=== PATIENT | female | born 1950 | race Caucasian/White ===

== ENCOUNTER 2017-05-08 09:49 | Emergency (ER) | payer MEDICARE, BC ==
[2016-02-02 10:19] VITALS: BMI 38.2
[~2017-05-08 09:49] MED LIST: ADVAIR 250/501 DISK INH; AMBIEN5 MG PO; ASTELIN137 MCG NS; ATROVENT 0.06%15 ML NS; BAYER CHEWABLE81 MG PO; BENICAR20 MG PO; BYSTOLIC20 MG PO; CHOLESTYRAMIN4 G/PK1 PO; COZAAR50 MG PO; CRESTOR20 MG PO; DIGESTIVE ADVANTAGE; ENTOCORT EC3 MG PO; FLAGYL500 MG PO; GABAPENTIN100 MG PO; HYDROCHLOROTHIA25 MG PO; HYDROCODONE-APA1 TAB PO; IMDUR30 MG PO; JANUVIA100 MG PO; KLONOPIN0.5 MG PO; KLOR-CON M2020 MEQ PO; LACTINEX C1 TAB.CHEW PO; MULTIVITAMIN; NEURONTIN 100100 MG PO; NIFEREX CAPSULE60 MG PO; NYSTATIN ORAL SU5 ML PO; OXYCODONE HCL5 MG PO; PAXIL20 MG PO; PEPCID20 MG PO; PLAQUENIL200 MG PO; PLAVIX75 MG PO; PREDNISONE20 MG PO; PRILOSEC20 MG PO; QUESTRAN PACK4 G/PKT PO; SALAGEN5 MG PO; SINGULAIR10 MG PO; SYMBICORT 16010.2 GM INH; SYSTANE 0.3-0.4%5 ML EACH EYE; TRAZODONE HCL50 MG PO; VICTOZA0.6 MG/0.1 SQ; VITAMIN C1000 MG PO; VITAMIN D31000 UNIT PO; ZANAFLEX4 MG PO; ZOFRAN4 MG PO; ZYLOPRIM100 MG PO; ZYRTEC10 MG PO; [UNRECOGNIZED DRUG - OTHER]
[2017-05-08 11:38] LABS: BASOPHILS 0.3 % (0-2); EOSINOPHILS 0 % (0-7); HEMATOCRIT 27.7 % (36.0-48.0); HEMOGLOBIN 9.4 g/dL (12-16); IMMATURE GRANULOCYTES 0.5 % (0-5); LYMPHOCYTES 10.2 % (15-50); MCH 36.2 pg (26.0-34.0); MCHC 33.9 g/dL (31.0-37.0); MCV 106.5 fL (80.0-100.0); MEAN PLATELET VOLUME 10.8 fL (7.4-10.4); MONOCYTES 9.4 % (2-11); NEUTROPHILS 79.6 % (40-80); WBC 3.7 10x3/uL (4.8-10.8)
[2017-05-08 11:48] LABS: PLATELET COUNT 212 10x3/uL (130-400)
[2017-05-08 11:56] LABS: ALBUMIN 3.3 g/dL (3.4-5.0); ANION GAP 14.5 mmol/L (8-16); BILIRUBIN - TOTAL 2.3 mg/dL (0.2-1.3); CALCIUM 8.9 mg/dL (8.5-10.1); CARBON DIOXIDE 25.8 mmol/L (21.0-32.0); CREATININE - SERUM 0.9 mg/dL (0.6-1.3); POTASSIUM - SERUM 4.3 mmol/L (3.5-5.1); PROTEIN - SERUM 7.2 g/dL (6.4-8.2)
[2017-05-08 14:22] LABS: APPEARANCE SLT CLOUDY (CLEAR); COLOR YELLOW (YELLOW); GLUCOSE NEGATIVE (NEGATIVE); NITRITE POSITIVE (NEGATIVE); PROTEIN 3+ mg/dL (NEGATIVE); SPECIFIC GRAVITY 1.015 (1.005-1.020)
[2017-05-08 14:23] LABS: BACTERIA MANY /hpf (NONE SEEN); BILIRUBIN NEGATIVE (NEGATIVE); EPITHELIAL CELLS OCC /hpf (0-5); KETONE NEGATIVE (NEGATIVE); RED CELLS - URINE 0-5 /hpf (0-5)
== END 2017-05-08 14:55 | disposition home or self-care (01) ==
LOC: D.ER 09:49
PROVIDERS: Emergency Medicine
DX: R11.10 Vomiting, unspecified (principal); N39.0 Urinary tract infection, site not specified; E11.9 Type 2 diabetes mellitus without complications; Z79.4 Long term (current) use of insulin; M32.9 Systemic lupus erythematosus, unspecified

== ENCOUNTER 2017-12-18 09:13 | Outpatient (CLI) | payer MEDICARE, BC ==
[~2017-12-18] VITALS: Ht 149.9 cm; Wt 78.2 kg
--- NOTE | ~2017-12-18 | OP ---
PATIENT NAME: CELESTINE VANEGAS MEDICAL RECORD: [id number] :52 LOCATION:D.CAT ADMISSION DATE: SURGEON: BHARATH APONTE MD DATE OF OPERATION: 12/18/2017 PROCEDURES: 1. Left heart catheterization. 2. Selective coronary angiography. 3. Left ventriculogram. PROCEDURE IN DETAIL: After informed consent was obtained and after detailed description of risks and benefits as well as alternative therapies, the patient elected to proceed with angiogram. The right femoral area was prepped and draped in normal sterile fashion. Right femoral artery was cannulated via modified Seldinger technique with placement of 5-Sami sheath. All catheters were exchanged through the sheath. FINDINGS: Left ventriculogram was performed in standard 30-degree BRANCH view, reveals global hypokinesis throughout all segments. Overall ejection fraction estimated at 20%. SELECTIVE CORONARY ANGIOGRAPHY: 1. Left main has no significant angiographic disease. 2. Left anterior descending has previously placed stents in LAD and LAD diagonal. These are widely patent with no significant restenosis. No disease else living[place] of LAD or its branches. 3. Left circumflex has mild irregularities, but no flow-limiting stenosis. 4. Right coronary has mild irregularities, but no flow-limiting stenosis. OVERALL IMPRESSION: Wide patency of the previously placed stents in LAD and LAD diagonal, severe cardiomyopathy, ejection fraction 20%. Standard medical management and treatment of cardiomyopathy. TRANSINT:[id number] Voice Confirmation ID: [id number] DOCUMENT ID: [id number] BHARATH APONTE MD at 1710 CC: [id number] DICTATION DATE: 12/18/17 1302 CONSTRUCTION DRILLER: 12/18/17 1324 DEP CLI 12/18/17 [facility] [address] [place] [address]
--- NOTE | ~2017-12-18 | HEMODYNAMI ---
PATIENT:CELESTINE VANEGAS MEDICAL RECORD: [id number] : 52 LOCATION:DSUZANNE ADMISSION DATE: 12/18/17 Generatedon:12/18/201713:06 Patient name: CELESTINE VANEGAS Patient #: [id number] : 1950 Date of study: 12/18/2017 Page: Of Hemodynamic Procedure Report Patient Data Patient Demographics Procedure consent was obtained First Name: CELESTINE Gender: Female Last Name: GUILHERME : 1950 [facility] Initial: NORMA Age: 67 year(s) Patient #: [id number] Race: SSN: [id number] Additional ID: [id number] Contact details Address: [address] [place] [address] rd State: [place] City: [place] Zip code: [address] Past Medical History History of disease Date Diagnosis Comments CAD COPD Allergies Allergen Reaction Date Comments Reported Other allergy 10/25/2015 ZITHROMAX, METHYLPREDNISTONE, AMOXICILLIN, EES, AUGMENTIN, FLAGYL, WHEAT, SULFA, GLUTEN Admission Admission Data Admission Date: 12/18/2017 Admission Time: 9:13 Procedure Procedure Types Cath Procedure Diagnostic Procedure C [facility] w/Coronaries Procedure Description Procedure Date Procedure Date: 12/18/2017 Procedure Start Time: 12:54 Procedure End Time: 13:01 Procedure Staff Name Function Aj Dias MD Performing Physician Ale Denis RT Monitor Breanna Luo RT Scrub Jo Buck RN Nurse Aldo Suggs RN Nurse Procedure Data Cath Procedure Fluoroscopy Diagnostic fluoroscopy Total fluoroscopy Time: 0.8 time: 0.8 min min Diagnostic fluoroscopy Total fluoroscopy dose: 381 dose: 381 mGy mGy Contrast Material Contrast Material Type Amount (ml) Isovue 300 49 Entry Location Entry Primary Successful Side Size Upsize Upsize Entry Closure Succes sful Closure Location (Fr) 1 (Fr) 2 (Fr) Remarks Device Remarks Femoral Right 5 Fr Exoseal artery Estimated blood loss: 10 ml Diagnostic catheters Device Type Used For End Catheter Placement MULTIPACK Pigtail 5 Fr Ventriculography catheter MULTIPACK JL 4.0 5Fr Procedure catheter MULTIPACK 3DRC 5Fr Procedure catheter Procedure Complications No complications Procedure Medications Medication Administration Route Dosage Oxygen NC 2 l/min Lidocaine 2% added to field 20 Heparin Flush Bag added to field 2 bags (1000units/500ml NS) 0.9% NaCl I.V. 100 ml/hr Versed I.V. 2 mg Fentanyl I.V. 100 mcg Versed I.V. 1 mg Fentanyl I.V. 50 mcg Versed I.V. 1 mg Fentanyl I.V. 50 mcg Hemodynamics Rest Heart Rate: 56 (bpm) Snapshots Pre Cath Intra NCS Post Cath Vital Signs Time Heart Resp SPO2 etCO2 NIBP (mmHg) Rhythm Pain Sedation Rate (ipm) (%) (mmHg) Status Level (bpm) 12:36:22 56 23 93 0 179/75(129) NSR 0 (11) 10(A) , No pain 12:41:27 57 28 93 0 173/74(133) NSR 0 (11) 10(A) , No pain 12:47:30 57 21 98 29.1 200/80(128) NSR 0 (11) 10(A) , No pain 12:51:44 66 22 100 32.1 165/81(128) NSR 0 (11) 9(A) , No pain 12:56:53 56 20 96 14.2 140/62(91) NSR 0 (11) 9(A) , No pain 13:01:40 52 19 100 15.6 112/66(88) NSR 0 (11) 9(A) , No pain 13:05:10 62 10 99 19.4 127/65(81) NSR 0 (11) 10(A) , No pain Medications Time Medication Route Dose Verified Delivered Reason Notes Effe ctiveness by by 12:45:20 Oxygen NC 2 Aj Martinie used for l/min Arun Buck RN procedure 12:46:26 Lidocaine 2% added 20ml Aj Rocha for local to vial Arun Dias MD anesthetic field 12:46:31 Heparin Flush added 2 Ajclaudette Rocha used for Bag to bags Arun Dias MD procedure (1000units/500ml field NS) 12:46:40 0.9% NaCl I.V. 100 Aj Buffie Per ml/hr Arun Buck RN physician 12:49:46 Versed I.V. 2 mg Aj Osorio for Arun Buck RN sedation 12:49:52 Fentanyl I.V. 100 Aj Osorio for [place] Buck RN sedation 12:54:38 Versed I.V. 1 mg Aj Osorio for Arun Buck RN sedation 12:54:42 Fentanyl I.V. 50 Aj Osorio for [place]as Buck RN sedation 13:58:38 Versed I.V. 1 mg Aj Osorio for Arun Buck RN sedation 13:58:45 Fentanyl I.V. 50 Aj Osorio for [place]as Buck RN sedation Procedure Log Time Note 12:14:23 Diagnostic Cath Status : Elective 12:14:52 Jo Buck RN sent for patient. Start room use. 12:14:53 Time tracking: Regular hours (M-F 7:00 - 5:00) 12:14:57 Plan of Care:Hemodynamics will remain stable., Cardiac rhythm will remain stable., Comfort level will be maintained., Respiratory function will remain adequate., Patient/ family verbilizes understanding of procedure., Procedure tolerated without complication., Recovers from procedure without complications.. 12:35:06 Patient received from Pre/Post Procedure Room to CCL 2 Alert and oriented. Tansferred to table in Supine position. 12:35:07 Warm blankets applied, and miri hugger turned on for patient comfort. 12:35:08 Correct patient and procedure confirmed by team. 12:35:10 Signed procedure consent form obtained from patient. 12:35:11 ECG and BP/O2 sat monitors applied to patient. 12:35:12 Vital chart was started 12:35:14 Baseline sample Acquired. 12:35:36 Rhythm: sinus rhythm 12:35:38 Full Disclosure recording started 12:35:53 H&P Date Dictated: 12/03/2017 Within 30 days and on chart., H&P Addendum completed by physician on day of procedure. (MUST COMPLETE FOR ALL OUTPATIENTS). 12:35:54 Pre-procedure instructions explained to patient. 12:35:56 Family in waiting room. 12:35:57 Patient NPO since Midnight. 12:36:05 Was the patient premedicated? Yes 12:36:07 Is patient on blood thinner?Yes 12:36:10 ACC The patient was administered the following blood thiners within the last 24 hours: ACCPlavix 12:36:12 Patient diabetic? Yes. 12:36:13 If diabetic: On Metformin? No 12:36:18 Snore? Yes 12:36:19 Sleep apnea? No 12:36:29 Airway obstruction? Yes COPD Asthma 12:36:34 Patient pain scale 0/10 ?. 12:36:43 IV patent on arrival in left forearm with 0.9% NaCl at [facility]. 12:36:52 Lab results completed and on chart. 12:36:54 Right groin area was prepped with chlora-prep and draped in sterile fashion 12:36:55 Alarms reviewed by R. N. 12:36:56 Sharps counted by scrub and verified by R.N. 12:36:57 Physician paged 12:44:26 Physician arrived 12:45:20 Oxygen 2 l/min NC was administered by Jo Buck RN; used for procedure; 12:46:26 Lidocaine 2% 20ml vial added to field was administered by Aj Dias MD; for local anesthetic; 12:46:31 Heparin Flush Bag (1000units/500ml NS) 2 bags added to field was administered by Aj Dias MD; used for procedure; 12:46:40 0.9% NaCl 100 ml/hr I.V. was administered by Jo Buck RN; Per physician; 12:46:45 Use device set Femoral Dx 12:46:46 ACIST Syringe (78506) opened to sterile field. 12:46:46 Bag Decanter () opened to sterile field. 12:46:47 Medline Cath Pack ([id number]) opened to sterile field. 12:46:47 DIAGNOSTIC WIRE .035 260cm J wire (191254) opened to sterile field. 12:46:48 ACIST Hand Control (46423) opened to sterile field. 12:46:49 ACIST Manifold (65611) opened to sterile field. 12:46:53 DIAGNOSTIC Multipack 5Fr catheter set ([id number]) opened to sterile field. 12:46:54 Tegaderm 4 x 4 (1626W) opened to sterile field. 12:46:56 PERCUTANEOUS ENTRY 19GA needle opened to sterile field. 12:46:59 SHEATH Prelude 5Fr 0.035 ([id number]-9F-89-035) opened to sterile field. 12:47:32 --------ALL STOP TIME OUT------ 12:47:33 Final Timeout: patient, procedure, and site verified with staff and physician. All members of the team are in agreement. 12:47:37 Right groin site verified by team. 12:47:41 Physical assessment completed. ASA score P 2 - A patient with mild systemic disease as per Aj Dias MD. 12:47:45 Sedation plan: IV Moderate Sedation Medication:Versed, Fentanyl 12:49:46 Versed 2 mg I.V. was administered by Jo Buck RN; for sedation; 12:49:52 Fentanyl 100 mcg I.V. was administered by Jo Buck RN; for sedation; 12:50:06 Procedure started. 12:54:26 Local anesthetic to right femoral artery with Lidocaine 2% by Aj Dias MD.INITIAL ACCESS ONLY 12:54:35 A 5 Fr sheath was inserted into the Right Femoral artery 12:54:38 Versed 1 mg I.V. was administered by Jo Buck RN; for sedation; 12:54:42 Fentanyl 50 mcg I.V. was administered by Jo Buck RN; for sedation; 12:55:18 Zero performed for pressure channel P1 12:56:21 A MULTIPACK Pigtail 5 Fr catheter was advanced over the wire and used for Ventriculography. 12:56:24 LV gram done using BRANCH 12:56:39 EF : 20 % 12:56:40 Catheter removed. 12:56:46 A MULTIPACK JL 4.0 5Fr catheter was advanced over the wire and used for Procedure. 12:56:50 LCA angiography performed. 12:58:10 Catheter removed. 12:58:18 A MULTIPACK 3DRC 5Fr catheter was advanced over the wire and used for Procedure. 12:58:46 EXOSEAL 5Fr (EX500) opened to sterile field. 12:58:56 Catheter removed. 12:59:06 Sheath removed intact; hemostasis achieved with Exoseal to the Right Femoral artery. 12:59:09 Procedure ended.(Physican Out) 12:59:51 Fluoroscopy time 00.80 minutes. 12:59:56 Fluoroscopy dose: 381 mGy 12:59:56 Flurop Dose total: 381 13:00:00 Contrast amount:Isovue 300 49ml. 13:00:01 Sharps counted by scrub and verified by R.N. 13:00:03 Insertion/operative site no bleeding no hematoma. 13:00:05 Post Procedure Pulses reassessed and unchanged 13:00:11 Post-procedure physical assessment completed. ASA score P 2 - A patient with mild systemic disease as per Aj Dias MD. 13:00:13 Post procedure rhythm: unchanged. 13:00:16 Estimated blood loss: 10 ml 13:00:18 Post procedure instruction explained to patient.Patient verbalizes understanding. 13:00:18 Post procedure instruction explained to patient.Patient verbalizes understanding. 13:00:36 Procedure and supply charges have been captured, reviewed, submitted and are correct. 13:01:02 Procedure Complication : No complications 13:01:04 Vital chart was stopped 13:01:05 See physician's report for complete and final results. 13:01:07 Report given to Pre/Post Procedure Room. 13:01:10 Patient transfered to Pre/Post Procedure Room with Stretcher. 13:01:12 Procedure ended. 13:01:12 Full Disclosure recording stopped 13:01:15 End room use (Document Last) 13:58:38 Versed 1 mg I.V. was administered by Jo Buck RN; for sedation; 13:58:45 Fentanyl 50 mcg I.V. was administered by Jo Buck RN; for sedation; Device Usage Item Name Manufacture Quantity Catalog Number Hospital Part Current M inimal Lot# / Charge Number Stock Stock Serial# Code ACIST Syringe Acist 1 99098 184960 304335 048079 2 0 (09043) [employer] Bag Decanter Microtek 1 346386 67683 972236 5 () Medical Inc. Medline Cath Cardinal 1 [id number] 813045 86806 101328 5 [facility] ([id number]) DIAGNOSTIC WIRE [place] 1 313060 673527 232112 561867 3 0 .035 260cm J wire (472673) ACIST Hand Acist 1 65801 786344 380664 731173 5 Control (99848) [employer] Inc ACIST Manifold Acist 1 24216 003134 145817 828293 5 (63510) [employer] Inc DIAGNOSTIC Cardinal 1 [id number] 341602 78046 109119 3 0 Multipack 5Fr Health catheter set (GR9285) Tegaderm 4 x 4 3M 1 1626W 945504 223758 446740 5 (1626W) PERCUTANEOUS Cook Medical 1 [id number] 124466 788098 5 ENTRY 19GA needle SHEATH Prelude Merit 1 [id number] 243045 150717 070188 5 5Fr 0.035 Medical ([id number]) MULTIPACK Cardinal 1 247742 5 Pigtail 5 Fr Health catheter MULTIPACK JL Cardinal 1 [id number] 5 4.0 5Fr Health catheter MULTIPACK 3DRC Cardinal 1 222643 5 5Fr catheter Health EXOSEAL 5Fr Cardinal 1 EX500 028860 875800 783515 1 0 (EX500) Health Signature Audit Rowena Stage Time Signature Unsigned Intra-Procedure 12/18/2017 Ale Denis 1:06:17 PM RT(R) Signatures Monitor : Ale Denis Signature : RT Date : Time : [facility] [address] [place] [address]
[2017-12-18] MEDS ORDERED: METOPROLOL TART50 MG PO (09:33)
[2017-12-18] MEDS ORDERED: IMURAN50 MG PO (09:34)
[2017-12-18 09:40] VITALS: BP 119/42; Ht 149.9 cm; Wt 78.2 kg
[2017-12-18 10:04] LABS: BASOPHILS 0.5 % (0-2); EOSINOPHILS 0 % (0-7); HEMATOCRIT 30.5 % (36.0-48.0); IMMATURE GRANULOCYTES 0.2 % (0-5); LYMPHOCYTES 11.9 % (15-50); MCHC 32.8 g/dL (31.0-37.0); MCV 109.7 fL (80.0-100.0); MEAN PLATELET VOLUME 11.6 fL (7.4-10.4); NEUTROPHILS 80.4 % (40-80); RBC 2.78 10x6/uL (4.00-5.40); WBC 4.1 10x3/uL (4.8-10.8)
[2017-12-18 10:06] LABS: PLATELET COUNT 137 10x3/uL (130-400)
[2017-12-18 10:46] LABS: CALC OSMOLALITY 272 mosm/kg (275-300); CALCIUM 9.5 mg/dL (8.5-10.1); CARBON DIOXIDE 27.9 mmol/L (21.0-32.0); CHLORIDE - SERUM 102 mmol/L (98-107); CREATININE - SERUM 0.8 mg/dL (0.6-1.3); POTASSIUM - SERUM 4.5 mmol/L (3.5-5.1); SODIUM 137 mmol/L (136-145); UREA NITROGEN 9 mg/dL (7-18); eGFR NON AFRICAN AMERICAN 76 mL/min (90-120)
[2017-12-18 11:01] LABS: GLUCOSE 96 mg/dL (74-106)
== END 2017-12-18 15:05 | disposition home or self-care (01) ==
LOC: D.CATH 09:13
PROVIDERS: Internal Medicine Interventional Cardiology
DX: I42.9 Cardiomyopathy, unspecified (principal); Z01.812 Encounter for preprocedural laboratory examination

== ENCOUNTER 2018-05-18 13:51 | Inpatient (IN) | payer MEDICARE, BC ==
[~2018-05-18] VITALS: Ht 149.9 cm; Wt 85.9 kg
--- NOTE | ~2018-05-18 | MORECARE ---
CASE MANAGEMENT DISCHARGE SUMMARY PATIENT: CELESTINE VANEGAS UNIT: [id number] ADM DATE: 05/18/18 AGE: 68 : 51 SEX: F ROOM/BED: D.2103 AUTHOR: MAUREEN,DOC PHYSICIAN: REFERRING PHYSICIAN: RUSTY SIMS MD DATE OF SERVICE: 06/05/18 Discharge Plan Patient Name: CELESTINE VANEGAS Facility: [facility]:[place] : 1950 Planned Disposition: Longterm Facility Anticipated Discharge Date: 06/05/18 Discharge Date: Expected LOS: 18 Initial Reviewer: [email or web address] Initial Review Date: 06/04/2018 Generated: 06/05/18 9:59 am Comments DCP- Discharge Planning Updated by [email or web address]: Godwin Gifford on 06/04/18 5:[address] Patient Name: CELESTINE VANEGAS Admission Status: ER Accout number: [id number] Admission Date: 05-18-2018 : 1950 Admission Diagnosis:WEAKNESS Attending: RUSTY SIMS Current LOS: 17 Anticipated DC Date: 06-05-2018 Planned Disposition: Longterm Facility Primary Insurance: MEDICARE A & B PLANNED [facility]TERNAL [facility] Discharge Planning Comments: CM RECEIVED REHAB PLACEMENT ORDER, MET WITH PT IN ROOM TO DISCUSS DISCHARGE PLANNING AND NEEDS. PT REPORTS LIVING AT HOME INDEPENDENTLY AND ALONE, PT REPORTS HER SPOUSE JUST . PT HAS CANE, NEBULIZER, HOME OXYGEN ONLY AND WALKER FROM [facility]. PT HAS NO OUTSIDE SERVICES ASSISTING IN THE HOME. CM DISCUSSED AVAILABILITY OF HOME HEALTH, REHAB SERVICES AND MEDICAL EQUIPMENT. PT DOES NOT THINK SHE CAN TOLERATE INPATIENT REHAB, REQUESTED REHAB AT [facility], CHOICE SIGNED. PT REPORTS HER DAUGHTER WILL PICK HER UP FOR DISCHARGE HOME. IMPORTANT MESSAGE FROM MEDICARE PROVIDED AND EXPLAINED. CM FAXED REFERRAL INFORMATION TO [facility] AT [phone]. [facility] [phone]. CM WAITING ADMISSION DETERMINATION FOR REHAB AT [facility]. Belting And Webbing Inspector: Godwin Gifford DCPIA - Discharge Planning Initial Assessment Updated by [email or web address]: Godwin Gifford on 06/04/18 6:15 pm * Is the patient Alert and Oriented? Yes * How many steps to enter\exit or inside your home? * PCP DR SIMS * Pharmacy [address] * Preadmission Environment Home Alone * ADLs Independent * Equipment Cane Nebulizer Oxygen Walker * Other Equipment OXYGEN AT NIGHT ONLY [facility] - PROVIDER * List name and contact numbers for known caregivers / representatives who currently or will assist patient after discharge: SARAH LANDEROS, DTR, JOAN PADILLA DTR, PHONE YBBRWN * Verbal permission to speak to the caregivers and representatives has been obtained from the patient. Yes * Community resources currently utilized None * Please name any agencies selected above. NONE * Additional services required to return to the preadmission environment? Yes * Can the patient safely return to the preadmission environment? Yes * Has this patient been hospitalized within the prior 30 days at any hospital? No Coverage Notice Reviewer: [email or web address] Gifford Notice Issued Date-Time: 06/04/2018 14:00 Notice Type: Patient Choice Letter Notice Delivered To: Patient Relationship to Patient: Sieve Grader Tender Name: Delivery Method: HAND - Hand Delivered Farhana Days: Prior Verbal Notification: Recipient Understood Notice: Yes Recipient Signature: Yes Med Rec Note Co-signed by Attending: Coverage Notice Comment: BUD Reviewer: [email or web address] Celestino Gifford Notice Issued Date-Time: 06/04/2018 14:00 Notice Type: IM Discharge Notice Notice Delivered To: Patient Relationship to Patient: Sieve Grader Tender Name: Delivery Method: HAND - Hand Delivered Farhana Days: Prior Verbal Notification: Recipient Understood Notice: Yes Recipient Signature: Yes Med Rec Note Co-signed by Attending: Coverage Notice Comment: Last DP export: 06/04/18 5:22 p Patient Name: CELESTINE VANEGAS Page 48625 at 0859 All edits/amendments must be made on the electronic document DICTATION DATE: 06/05/18857 CLOUD SOFTWARE ENGINEER: NADIR 06/05/18857 RPT#: [id number] DC DATE: STATUS: ADM IN [facility] [address] [place] [address] END OF REPORT
--- NOTE | ~2018-05-18 | MORECARE ---
CASE MANAGEMENT DISCHARGE SUMMARY PATIENT: CELESTINE VANEGAS UNIT: [id number] ADM DATE: 05/18/18 AGE: 68 : 51 SEX: F ROOM/BED: D.2103 AUTHOR: MAUREEN,DOC PHYSICIAN: REFERRING PHYSICIAN: RUSTY SIMS MD DATE OF SERVICE: 06/04/18 Discharge Plan Patient Name: CELESTINE VANEGAS Facility: [facility]:[place] : 1950 Planned Disposition: Nursing Home Facility Anticipated Discharge Date: 06/05/18 Discharge Date: Expected LOS: 18 Initial Reviewer: [email or web address] Initial Review Date: 06/04/2018 Generated: 06/04/18 7:22 pm Comments DCP- Discharge Planning Updated by [email or web address]: Godwin Gifford on 06/04/18 5:[address] Patient Name: CELESTINE VANEGAS Admission Status: ER Accout number: [id number] Admission Date: 05-18-2018 : 1950 Admission Diagnosis:WEAKNESS Attending: RUSTY SIMS Current LOS: 17 Anticipated DC Date: 06-05-2018 Planned Disposition: Nursing Home Facility Primary Insurance: MEDICARE A & B PLANNED [facility]TERNAL [facility] Discharge Planning Comments: CM RECEIVED REHAB PLACEMENT ORDER, MET WITH PT IN ROOM TO DISCUSS DISCHARGE PLANNING AND NEEDS. PT REPORTS LIVING AT HOME INDEPENDENTLY AND ALONE, PT REPORTS HER SPOUSE JUST . PT HAS CANE, NEBULIZER, HOME OXYGEN ONLY AND WALKER FROM [facility]. PT HAS NO OUTSIDE SERVICES ASSISTING IN THE HOME. CM DISCUSSED AVAILABILITY OF HOME HEALTH, REHAB SERVICES AND MEDICAL EQUIPMENT. PT DOES NOT THINK SHE CAN TOLERATE INPATIENT REHAB, REQUESTED REHAB AT [facility], CHOICE SIGNED. PT REPORTS HER DAUGHTER WILL PICK HER UP FOR DISCHARGE HOME. IMPORTANT MESSAGE FROM MEDICARE PROVIDED AND EXPLAINED. CM FAXED REFERRAL INFORMATION TO [facility] AT [phone]. [facility] AT [phone]. CM WAITING ADMISSION DETERMINATION FOR REHAB AT [facility]. Privacy Officer: Godwin Gifford DCPIA - Discharge Planning Initial Assessment Updated by [id number]: Godwin Gifford on 06/04/18 6:15 pm * Is the patient Alert and Oriented? Yes * How many steps to enter\exit or inside your home? * PCP DR SIMS * Pharmacy [address] * Preadmission Environment Home Alone * ADLs Independent * Equipment Cane Nebulizer Oxygen Walker * Other Equipment OXYGEN AT NIGHT ONLY [facility] - PROVIDER * List name and contact numbers for known caregivers / representatives who currently or will assist patient after discharge: RICHIE WOODR, JOAN PADILLA DTR, PHONE WLUJWN * Verbal permission to speak to the caregivers and representatives has been obtained from the patient. Yes * Community resources currently utilized None * Please name any agencies selected above. NONE * Additional services required to return to the preadmission environment? Yes * Can the patient safely return to the preadmission environment? Yes * Has this patient been hospitalized within the prior 30 days at any hospital? No External Providers [facility] Next Contact Date: 06/05/2018 Service Request Date: Service Type: Resolution: Reviewer: Comments: Last DP export: 06/04/18 5:13 p Patient Name: CELESTINE VANEGAS Page 92936 at 1822 All edits/amendments must be made on the electronic document DICTATION DATE: 06/04/181820 TAPER OPERATOR: NADIR 06/04/181820 RPT#: [id number] DC DATE: STATUS: ADM IN [facility] [address] [place] [address] END OF REPORT
--- NOTE | ~2018-05-18 | MORECARE ---
CASE MANAGEMENT DISCHARGE SUMMARY PATIENT: CELESTINE VANEGAS UNIT: [id number] ADM DATE: 05/18/18 AGE: 68 : 51 SEX: F ROOM/BED: D.2103 AUTHOR: MAUREEN,DOC PHYSICIAN: REFERRING PHYSICIAN: RUSTY SIMS MD DATE OF SERVICE: 06/05/18 Discharge Plan Patient Name: CELESTINE VANEGAS Facility: [facility]:[place] : 1950 Planned Disposition: Halfway Facility Anticipated Discharge Date: 06/05/18 Discharge Date: Expected LOS: 18 Initial Reviewer: [email or web address] Initial Review Date: 06/04/2018 Generated: 06/05/18 4:07 pm Comments DCP- Discharge Planning Updated by [id number]: Godwin Gifford on 06/05/18 1:[address] Patient Name: CELESTINE VANEGAS Encounter No: [id number] : 1950 Primary Insurance: MEDICARE A & B Anticipated DC Date: 06-05-2018 Planned Disposition: Halfway Facility External Planned Provider: [facility], MEDICARE REHAB BED DCP follow-up note: CM RECEIVED CALL FROM [facility], THEY WILL ACCEPT PT FOR REHAB AT DISCHARGE. PT NOTIFIED AND IN AGREEMENT WITH REHAB AT [facility] AT DISCHARGE. FOR DISCHARGE, FAX DISCHARGE INFORMATION TO [facility] AT [phone]. NURSE REPORT TO BE CALLED TO [facility] AT [phone]. [facility] TO ARRANGE VAN TRANSPORTATION. Godwin Gifford CASE MANAGEMENT Appended by Godwin Gifford on 06/05/2018 14:58 [facility]: CM RECEIVED ORDER FOR DISCHARGE, SPOKE TO PT IN ROOM WHO HAS SPOKEN TO THE DOCTOR AND IN AGREEMENT WITH DISCHARGE TO REHAB TODAY. CM FAXED DISCHARGE INFORMATION TO [facility] AT [phone]. NURSE REPORT TO BE CALLED TO [facility] AT [phone]. [facility] TO ARRANGE VAN TRANSPORTATION. ERIN Chacko DCP- Discharge Planning Updated by [id number]: Godwin Gifford on 06/04/18 5:[address] Patient Name: CELESTINE VANEGAS Admission Status: ER Accout number: [id number] Admission Date: 05-18-2018 : 1950 Admission Diagnosis:WEAKNESS Attending: RUSTY SIMS Current LOS: 17 Anticipated DC Date: 06-05-2018 Planned Disposition: Halfway Facility Primary Insurance: MEDICARE A & B PLANNED EXTERNAL PROVIDER: [facility], MEDICARE REHAB BED Discharge Planning Comments: CM RECEIVED REHAB PLACEMENT ORDER, MET WITH PT IN ROOM TO DISCUSS DISCHARGE PLANNING AND NEEDS. PT REPORTS LIVING AT HOME INDEPENDENTLY AND ALONE, PT REPORTS HER SPOUSE JUST . PT HAS CANE, NEBULIZER, HOME OXYGEN ONLY AND WALKER FROM [facility]. PT HAS NO OUTSIDE SERVICES ASSISTING IN THE HOME. CM DISCUSSED AVAILABILITY OF HOME HEALTH, REHAB SERVICES AND MEDICAL EQUIPMENT. PT DOES NOT THINK SHE CAN TOLERATE INPATIENT REHAB, REQUESTED REHAB AT [facility], CHOICE SIGNED. PT REPORTS HER DAUGHTER WILL PICK HER UP FOR DISCHARGE HOME. IMPORTANT MESSAGE FROM MEDICARE PROVIDED AND EXPLAINED. CM [facility] [phone][facility] AT [phone]. CM WAITING ADMISSION DETERMINATION FOR REHAB AT [facility]. Framing Carpenter: Godwin Gifford DCPIA - Discharge Planning Initial Assessment Updated by [id number]: Godwin Gifford on 06/04/18 6:15 pm * Is the patient Alert and Oriented? Yes * How many steps to enter\exit or inside your home? * PCP DR SIMS * Pharmacy [address] * Preadmission Environment Home Alone * ADLs Independent * Equipment Cane Nebulizer Oxygen Walker * Other Equipment [facility] * List name and contact numbers for known caregivers / representatives who currently or will assist patient after discharge: SARAH LANDEROS DTR, JOAN PADILLA DTR, PHONE FHLDWN * Verbal permission to speak to the caregivers and representatives has been obtained from the patient. Yes * Community resources currently utilized None * Please name any agencies selected above. NONE * Additional services required to return to the preadmission environment? Yes * Can the patient safely return to the preadmission environment? Yes * Has this patient been hospitalized within the prior 30 days at any hospital? No Coverage Notice Reviewer: [id number] - Godwin Gifford Notice Issued Date-Time: 06/04/2018 14:00 Notice Type: Patient Choice Letter Notice Delivered To: Patient Relationship to Patient: Manager Internal Name: Delivery Method: HAND - Hand Delivered Farhana Days: Prior Verbal Notification: Recipient Understood Notice: Yes Recipient Signature: Yes Med Rec Note Co-signed by Attending: Coverage Notice Comment: BUD Reviewer: [id number] Celestino Gifford Notice Issued Date-Time: 06/04/2018 14:00 Notice Type: IM Discharge Notice Notice Delivered To: Patient Relationship to Patient: Manager Internal Name: Delivery Method: HAND - Hand Delivered Farhana Days: Prior Verbal Notification: Recipient Understood Notice: Yes Recipient Signature: Yes Med Rec Note Co-signed by Attending: Coverage Notice Comment: Last DP export: 06/05/18 8:07 a Patient Name: CELESTINE VANEGAS Page 70005 at 1507 All edits/amendments must be made on the electronic document DICTATION DATE: 06/05/18 1507 TOOL SPECIALIST: NADIR 06/05/18 1507 RPT#: [id number] DC DATE: STATUS: ADM IN [facility] [address] [place] [address] END OF REPORT
--- NOTE | ~2018-05-18 | MORECARE ---
CASE MANAGEMENT DISCHARGE SUMMARY PATIENT: CELESTINE VANEGAS UNIT: [id number] ADM DATE: 05/18/18 AGE: 68 : 51 SEX: F ROOM/BED: D.2103 AUTHOR: MAUREEN,DOC PHYSICIAN: REFERRING PHYSICIAN: RUSTY SIMS MD DATE OF SERVICE: 06/06/18 Discharge Plan Patient Name: CELESTINE VANEGAS Facility: [facility]:[place] : 1950 Planned Disposition: Care Home Facility Anticipated Discharge Date: 06/05/18 Discharge Date: 06/05/2018 Expected LOS: 18 Initial Reviewer: [email or web address] Initial Review Date: 06/04/2018 Generated: 06/06/18 9:26 am Comments DCP- Discharge Planning Updated by [id number]: Godwin Gifford on 06/05/18 1:[address] Patient Name: CELESTINE VANEGAS Encounter No: [id number] : 1950 Primary Insurance: MEDICARE A & B Anticipated DC Date: 06-05-2018 Planned Disposition: Care Home Facility External Planned Provider: [facility], MEDICARE REHAB BED DCP follow-up note: CM RECEIVED CALL FROM [facility], THEY WILL ACCEPT PT FOR REHAB AT DISCHARGE. PT NOTIFIED AND IN AGREEMENT WITH REHAB AT [facility] AT DISCHARGE. FOR DISCHARGE, FAX DISCHARGE INFORMATION TO [facility] AT [phone]. NURSE REPORT TO BE CALLED TO [facility] AT [phone]. [facility] TO ARRANGE VAN TRANSPORTATION. Godwin Gifford CASE MANAGEMENT Appended by Godwin Gifford on 06/05/2018 14:58 FINISHER PLATE: CM RECEIVED ORDER FOR DISCHARGE, SPOKE TO PT IN ROOM WHO HAS SPOKEN TO THE DOCTOR AND IN AGREEMENT WITH DISCHARGE TO REHAB TODAY. CM FAXED DISCHARGE INFORMATION TO [facility] AT [phone]. NURSE REPORT TO BE CALLED TO [facility] AT [phone]. [facility] TO ARRANGE VAN TRANSPORTATION. ERIN Chacko DCP- Discharge Planning Updated by [id number]: Godwin Gifford on 06/04/18 5:[address] Patient Name: CELESTINE VANEGAS Admission Status: ER Accout number: [id number] Admission Date: 05-18-2018 : 1950 Admission Diagnosis:WEAKNESS Attending: RUSTY SIMS Current LOS: 17 Anticipated DC Date: 06-05-2018 Planned Disposition: Care Home Facility Primary Insurance: MEDICARE A & B PLANNED EXTERNAL PROVIDER: [facility], MEDICARE REHAB BED Discharge Planning Comments: CM RECEIVED REHAB PLACEMENT ORDER, MET WITH PT IN ROOM TO DISCUSS DISCHARGE PLANNING AND NEEDS. PT REPORTS LIVING AT HOME INDEPENDENTLY AND ALONE, PT REPORTS HER SPOUSE JUST . PT HAS CANE, NEBULIZER, HOME OXYGEN ONLY AND WALKER FROM [facility]. PT HAS NO OUTSIDE SERVICES ASSISTING IN THE HOME. CM DISCUSSED AVAILABILITY OF HOME HEALTH, REHAB SERVICES AND MEDICAL EQUIPMENT. PT DOES NOT THINK SHE CAN TOLERATE INPATIENT REHAB, REQUESTED REHAB AT [facility], CHOICE SIGNED. PT REPORTS HER DAUGHTER WILL PICK HER UP FOR DISCHARGE HOME. IMPORTANT MESSAGE FROM MEDICARE PROVIDED AND EXPLAINED. CM [facility] AT [phone]. CM TO FOLLOW UP WITH [facility] AT [phone]. CM WAITING ADMISSION DETERMINATION FOR REHAB AT [facility]. Channel Manager: Godwin Gifford DCPIA - Discharge Planning Initial Assessment Updated by [id number]: Godwin Gifford on 06/04/18 6:15 pm * Is the patient Alert and Oriented? Yes * How many steps to enter\exit or inside your home? * PCP DR SIMS * Pharmacy [address] * Preadmission Environment Home Alone * ADLs Independent * Equipment Cane Nebulizer Oxygen Walker * Other Equipment OXYGEN AT NIGHT ONLY [facility] - PROVIDER * List name and contact numbers for known caregivers / representatives who currently or will assist patient after discharge: SARAH LANDEROS DTR, JOAN PADILLA DTR, PHONE UWNQWX * Verbal permission to speak to the caregivers and representatives has been obtained from the patient. Yes * Community resources currently utilized None * Please name any agencies selected above. NONE * Additional services required to return to the preadmission environment? Yes * Can the patient safely return to the preadmission environment? Yes * Has this patient been hospitalized within the prior 30 days at any hospital? No Coverage Notice Reviewer: [id number] - Godwin Gifford Notice Issued Date-Time: 06/04/2018 14:00 Notice Type: Patient Choice Letter Notice Delivered To: Patient Relationship to Patient: Lead Quality Technician Name: Delivery Method: HAND - Hand Delivered Farhana Days: Prior Verbal Notification: Recipient Understood Notice: Yes Recipient Signature: Yes Med Rec Note Co-signed by Attending: Coverage Notice Comment: BUD Reviewer: [email or web address] Celestino Gifford Notice Issued Date-Time: 06/04/2018 14:00 Notice Type: IM Discharge Notice Notice Delivered To: Patient Relationship to Patient: Lead Quality Technician Name: Delivery Method: HAND - Hand Delivered Farhana Days: Prior Verbal Notification: Recipient Understood Notice: Yes Recipient Signature: Yes Med Rec Note Co-signed by Attending: Coverage Notice Comment: Last DP export: 06/05/18 2:07 p Patient Name: CELESTINE VANEGAS Page 75143 at 0826 All edits/amendments must be made on the electronic document DICTATION DATE: 06/06/18825 MUTUAL FUND SALES AGENT: NADIR 06/06/18825 RPT#: [id number] DC DATE:06/05/18 STATUS: DIS IN [facility] [address] [place] [address] END OF REPORT
--- NOTE | ~2018-05-18 | MORECARE ---
CASE MANAGEMENT DISCHARGE SUMMARY PATIENT: CELESTINE VANEGAS UNIT: [id number] ADM DATE: 05/18/18 AGE: 68 : 51 SEX: F ROOM/BED: D.2103 AUTHOR: REGINA REDDY PHYSICIAN: REFERRING PHYSICIAN: RUSTY SIMS MD DATE OF SERVICE: 06/04/18 Discharge Plan Patient Name: CELESTINE VANEGAS [facility] : 1950 Planned Disposition: Chcf Facility Anticipated Discharge Date: 06/05/18 Discharge Date: Expected LOS: 18 Initial Reviewer: [email or web address] Initial Review Date: 06/04/2018 Generated: 06/04/18 7:13 pm Patient Name: CELESTINE VANEGAS Page 30575 at 1813 All edits/amendments must be made on the electronic document DICTATION DATE: 06/04/181811 SECURITY NURSE: NADIR 06/04/181811 RPT#: [id number] DC DATE: STATUS: ADM IN [facility] [address] [place] [address] END OF REPORT
--- NOTE | ~2018-05-18 | MORECARE ---
CASE MANAGEMENT DISCHARGE SUMMARY PATIENT: CELESTINE VANEGAS UNIT: [id number] ADM DATE: 05/18/18 AGE: 68 : 52 SEX: F ROOM/BED: D.2103 AUTHOR: MAUREEN,DOC PHYSICIAN: REFERRING PHYSICIAN: RUSTY SIMS MD DATE OF SERVICE: 06/05/18 Discharge Plan Patient Name: CELESTINE VANEGAS Facility: [facility]:[place] : 1950 Planned Disposition: Half-Way Facility Anticipated Discharge Date: 06/05/18 Discharge Date: Expected LOS: 18 Initial Reviewer: [id number] Initial Review Date: 06/04/2018 Generated: 06/05/18 10:07 am Comments DCP- Discharge Planning Updated by [id number]: Godwin Gifford on 06/05/18 8:[address] Patient Name: CELESTINE VANEGAS Encounter No: [id number] : 1950 Primary Insurance: MEDICARE A & B Anticipated DC Date: 06-05-2018 Planned Disposition: Half-Way Facility External Planned Provider: [facility], MEDICARE REHAB BED DCP follow-up note: CM RECEIVED CALL FROM [facility], THEY WILL ACCEPT PT FOR REHAB AT DISCHARGE. PT NOTIFIED AND IN AGREEMENT WITH REHAB AT [facility] AT DISCHARGE. FOR DISCHARGE, FAX DISCHARGE INFORMATION TO [facility] AT [phone]. NURSE REPORT TO BE CALLED TO [facility] AT [phone]. [facility] TO ARRANGE VAN TRANSPORTATION. ERIN Chacko DCP- Discharge Planning Updated by [email or web address]: Godwin Gifford on 06/04/18 5:[address] Patient Name: CELESTINE VANEGAS Admission Status: ER Accout number: [id number] Admission Date: 05-18-2018 : 1950 Admission Diagnosis:WEAKNESS Attending: RUSTY SIMS Current LOS: 17 Anticipated DC Date: 06-05-2018 Planned Disposition: Half-Way Facility Primary Insurance: MEDICARE A & B PLANNED EXTERNAL PROVIDER: [facility], MEDICARE REHAB BED Discharge Planning Comments: CM RECEIVED REHAB PLACEMENT ORDER, MET WITH PT IN ROOM TO DISCUSS DISCHARGE PLANNING AND NEEDS. PT REPORTS LIVING AT HOME INDEPENDENTLY AND ALONE, PT REPORTS HER SPOUSE JUST . PT HAS CANE, NEBULIZER, HOME OXYGEN ONLY AND WALKER FROM [facility]. PT HAS NO OUTSIDE SERVICES ASSISTING IN THE HOME. CM DISCUSSED AVAILABILITY OF HOME HEALTH, REHAB SERVICES AND MEDICAL EQUIPMENT. PT DOES NOT THINK SHE CAN TOLERATE INPATIENT REHAB, REQUESTED REHAB AT [facility], CHOICE SIGNED. PT REPORTS HER DAUGHTER WILL PICK HER UP FOR DISCHARGE HOME. IMPORTANT MESSAGE FROM MEDICARE PROVIDED AND EXPLAINED. CM FAXED REFERRAL INFORMATION TO [facility] AT [phone]. CM TO FOLLOW UP WITH [facility] AT [phone]. CM WAITING ADMISSION DETERMINATION FOR REHAB AT [facility]. Pea Viner Mechanic: Godwin Gifford DCPIA - Discharge Planning Initial Assessment Updated by [email or web address]: Godwin Gifford on 06/04/18 6:15 pm * Is the patient Alert and Oriented? Yes * How many steps to enter\exit or inside your home? * PCP DR SIMS * Pharmacy [address] * Preadmission Environment Home Alone * ADLs Independent * Equipment Cane Nebulizer Oxygen Walker * Other Equipment OXYGEN AT NIGHT ONLY [facility] - PROVIDER * List name and contact numbers for known caregivers / representatives who currently or will assist patient after discharge: SARAH LANDEROS DTR, JOAN PADILLA DTR, PHONE [id number] * Verbal permission to speak to the caregivers and representatives has been obtained from the patient. Yes * Community resources currently utilized None * Please name any agencies selected above. NONE * Additional services required to return to the preadmission environment? Yes * Can the patient safely return to the preadmission environment? Yes * Has this patient been hospitalized within the prior 30 days at any hospital? No Coverage Notice Reviewer: [email or web address] Celestino Gifford Notice Issued Date-Time: 06/04/2018 14:00 Notice Type: Patient Choice Letter Notice Delivered To: Patient Relationship to Patient: Jammer Operator Name: Delivery Method: HAND - Hand Delivered Farhana Days: Prior Verbal Notification: Recipient Understood Notice: Yes Recipient Signature: Yes Med Rec Note Co-signed by Attending: Coverage Notice Comment: BUD Reviewer: [id number] Celestino Gifford Notice Issued Date-Time: 06/04/2018 14:00 Notice Type: IM Discharge Notice Notice Delivered To: Patient Relationship to Patient: Jammer Operator Name: Delivery Method: HAND - Hand Delivered Farhana Days: Prior Verbal Notification: Recipient Understood Notice: Yes Recipient Signature: Yes Med Rec Note Co-signed by Attending: Coverage Notice Comment: Last DP export: 06/05/18 7:59 a Patient Name: CELESTINE VANEGAS Page 03288 at 0907 All edits/amendments must be made on the electronic document DICTATION DATE: 06/05/18905 SOLID WASTE ENGINEER: NADIR 06/05/18905 RPT#: [id number] DC DATE: STATUS: ADM IN [facility] [address] [place] [address] END OF REPORT
[~2018-05-18 13:51] MED LIST changes: +IMURAN50 MG PO; +METOPROLOL TART50 MG PO
[2018-05-18 16:21] LABS: BASOPHILS 0.1 % (0-2); EOSINOPHILS 0 % (0-7); HEMATOCRIT 32.4 % (36.0-48.0); HEMOGLOBIN 10.6 g/dL (12-16); IMMATURE GRANULOCYTES 0.5 % (0-5); LYMPHOCYTES 5.5 % (15-50); MCHC 32.7 g/dL (31.0-37.0); MCV 103.8 fL (80.0-100.0); MEAN PLATELET VOLUME 11.4 fL (7.4-10.4); MONOCYTES 13.5 % (2-11); NEUTROPHILS 80.4 % (40-80); RBC 3.12 10x6/uL (4.00-5.40); RDW 15.4 % (11.5-14.5); WBC 11.7 10x3/uL (4.8-10.8)
[2018-05-18 16:22] LABS: PLATELET COUNT 76 10x3/uL (130-400)
[2018-05-18 16:32] LABS: INR 2.38 (0.85-1.17); PROTIME 25.7 SECONDS (11.6-15.0)
[2018-05-18 16:40] LABS: PLATELET ESTIMATE DECREASED
[2018-05-18 17:25] LABS: ALBUMIN 3.3 g/dL (3.4-5.0); ALKALINE PHOSPHATASE 155 U/L (46-116); ALT (SGPT) 50 U/L (10-68); BILIRUBIN - TOTAL 1.83 mg/dL (0.2-1.3); CARBON DIOXIDE 22.4 mmol/L (21.0-32.0); CHLORIDE - SERUM 94 mmol/L (98-107); CKMB 7.9 U/L (0.0-3.6); GLUCOSE 90 mg/dL (74-106); POTASSIUM - SERUM 5.8 mmol/L (3.5-5.1); PROTEIN - SERUM 6.7 g/dL (6.4-8.2); UREA NITROGEN 14 mg/dL (7-18)
[2018-05-18 17:58] LABS: CALC OSMOLALITY 261 mosm/kg (275-300); CALCIUM 9.3 mg/dL (8.5-10.1); CREATININE - SERUM 1.4 mg/dL (0.6-1.3); MAGNESIUM - SERUM 1.6 mg/dL (1.8-2.4); SODIUM 130 mmol/L (136-145); THYROID STIMULATING HORMONE 13.21 uIU/mL (0.36-3.74); eGFR NON AFRICAN AMERICAN 40 mL/min (90-120)
[2018-05-18 18:02] LABS: LIPASE 42 U/L (73-393)
[2018-05-18 18:03] LABS: TROPONIN-I 0.113 ng/mL (0.000-0.060)
[2018-05-18 18:31] LABS: CREATINE KINASE 1200 UL (21-215)
[2018-05-18 18:58] LABS: APPEARANCE HAZY (CLEAR); BILIRUBIN 1+ (NEGATIVE); COLOR DK YELLOW (YELLOW); GLUCOSE NEGATIVE (NEGATIVE); KETONE NEGATIVE (NEGATIVE); NITRITE NEGATIVE (NEGATIVE); PROTEIN 2+ mg/dL (NEGATIVE); SPECIFIC GRAVITY 1.025 (1.005-1.020)
[2018-05-18 18:59] LABS: RED CELLS - URINE 0-5 /hpf (0-5); WHITE CELLS - URINE 0-5 /hpf (0-5)
[2018-05-18 19:00] LABS: AMORPHOUS SEDIMENT <1+ /lpf (NONE SEEN); BACTERIA FEW /hpf (NONE SEEN); EPITHELIAL CELLS 0-5 /hpf (0-5); GRANULAR CAST 0-5 /lpf (NONE SEEN)
[2018-05-18 19:30] VITALS: BP 165/65
[2018-05-18 20:22] LABS: ALBUMIN 2.9 g/dL (3.4-5.0); ALKALINE PHOSPHATASE 142 U/L (46-116); ALT (SGPT) 48 U/L (10-68); BILIRUBIN - TOTAL 1.75 mg/dL (0.2-1.3); CALC OSMOLALITY 259 mosm/kg (275-300); CALCIUM 8.4 mg/dL (8.5-10.1); CARBON DIOXIDE 20.5 mmol/L (21.0-32.0); CHLORIDE - SERUM 97 mmol/L (98-107); CREATININE - SERUM 1.3 mg/dL (0.6-1.3); POTASSIUM - SERUM 5.9 mmol/L (3.5-5.1); PROTEIN - SERUM 6.4 g/dL (6.4-8.2); SODIUM 130 mmol/L (136-145); UREA NITROGEN 14 mg/dL (7-18); eGFR NON AFRICAN AMERICAN 43 mL/min (90-120)
[2018-05-18 20:23] LABS: GLUCOSE 68 mg/dL (74-106)
[2018-05-18 20:30] VITALS: BP 144/84
[2018-05-18 20:37] LABS: CKMB 12.3 U/L (0.0-3.6)
[2018-05-18 20:38] LABS: CREATINE KINASE 1383 UL (21-215)
[2018-05-18 20:44] LABS: TROPONIN-I 0.123 ng/mL (0.000-0.060)
[2018-05-18 21:00] VITALS: BP 158/70
[2018-05-18 21:00] LABS: PRO BNP 61927 pg/mL (0-125)
[2018-05-18 21:03] LABS: PRO BNP 46512 pg/mL (0-125)
[2018-05-19] MEDS ORDERED: GABAPENTIN100 MG PO (01:34)
[2018-05-19 01:45] VITALS: BP 125/59; BMI 36.4
[2018-05-19 04:30] VITALS: BP 140/57
[2018-05-19 04:35] LABS: BASOPHILS 0.1 % (0-2); EOSINOPHILS 0 % (0-7); HEMATOCRIT 30.9 % (36.0-48.0); HEMOGLOBIN 10.1 g/dL (12-16); IMMATURE GRANULOCYTES 0.3 % (0-5); LYMPHOCYTES 5.8 % (15-50); MCH 33.6 pg (26.0-34.0); MCHC 32.7 g/dL (31.0-37.0); MCV 102.7 fL (80.0-100.0); MEAN PLATELET VOLUME 12.7 fL (7.4-10.4); MONOCYTES 11.4 % (2-11); NEUTROPHILS 82.4 % (40-80); PLATELET COUNT 80 10x3/uL (130-400); RBC 3.01 10x6/uL (4.00-5.40); RDW 15.4 % (11.5-14.5); WBC 13.1 10x3/uL (4.8-10.8)
[2018-05-19 05:31] LABS: ALBUMIN 3.1 g/dL (3.4-5.0); ALKALINE PHOSPHATASE 144 U/L (46-116); ALT (SGPT) 62 U/L (10-68); BILIRUBIN - TOTAL 1.89 mg/dL (0.2-1.3); CALC OSMOLALITY 262 mosm/kg (275-300); CALCIUM 8.8 mg/dL (8.5-10.1); CHLORIDE - SERUM 96 mmol/L (98-107); CKMB 20.9 U/L (0.0-3.6); CREATINE KINASE 2210 UL (21-215); CREATININE - SERUM 1.3 mg/dL (0.6-1.3); GLUCOSE 84 mg/dL (74-106); MAGNESIUM - SERUM 1.6 mg/dL (1.8-2.4); POTASSIUM - SERUM 5.3 mmol/L (3.5-5.1); PROTEIN - SERUM 6.8 g/dL (6.4-8.2); SODIUM 131 mmol/L (136-145); UREA NITROGEN 16 mg/dL (7-18); eGFR NON AFRICAN AMERICAN 43 mL/min (90-120)
[2018-05-19 05:32] LABS: TROPONIN-I 0.119 ng/mL (0.000-0.060)
[2018-05-19 07:20] VITALS: BP 141/81
[2018-05-19 12:02] VITALS: BMI 36.3
[2018-05-19 13:13] VITALS: BP 143/70
[2018-05-19 13:30] VITALS: Ht 149.9 cm; Wt 85.9 kg
[2018-05-19 20:00] VITALS: BP 139/85
[2018-05-20 01:24] VITALS: BP 110/46
[2018-05-20 06:19] VITALS: BP 110/68
[2018-05-20 09:59] VITALS: BP 136/63
[2018-05-20 13:11] VITALS: BP 126/71
[2018-05-20 16:28] VITALS: BP 127/47
[2018-05-20 22:10] VITALS: BP 126/42
[2018-05-21] VITALS: BP 131/44
[2018-05-21 04:57] LABS: BASOPHILS 0.1 % (0-2); EOSINOPHILS 0 % (0-7); HEMOGLOBIN 9.8 g/dL (12-16); IMMATURE GRANULOCYTES 0.3 % (0-5); LYMPHOCYTES 5.8 % (15-50); MCH 34.4 pg (26.0-34.0); MCHC 33.8 g/dL (31.0-37.0); MCV 101.8 fL (80.0-100.0); MEAN PLATELET VOLUME 10.3 fL (7.4-10.4); MONOCYTES 8.3 % (2-11); NEUTROPHILS 85.5 % (40-80); PLATELET COUNT 74 10x3/uL (130-400); RBC 2.85 10x6/uL (4.00-5.40); RDW 15.2 % (11.5-14.5); WBC 9.3 10x3/uL (4.8-10.8)
[2018-05-21 05:04] LABS: ALBUMIN 2.5 g/dL (3.4-5.0); ANION GAP 12.5 mmol/L (8-16); BILIRUBIN - TOTAL 1.57 mg/dL (0.2-1.3); CALCIUM 7.9 mg/dL (8.5-10.1); CARBON DIOXIDE 27.6 mmol/L (21.0-32.0); CREATININE - SERUM 1.1 mg/dL (0.6-1.3); POTASSIUM - SERUM 3.1 mmol/L (3.5-5.1); PROTEIN - SERUM 5.9 g/dL (6.4-8.2)
[2018-05-21 05:53] VITALS: BP 133/40
[2018-05-21 07:55] VITALS: BP 125/65
[2018-05-21 12:52] VITALS: BP 140/62
[2018-05-21 17:47] VITALS: BP 133/59
[2018-05-22] VITALS: BP 138/56
[2018-05-22 01:05] VITALS: BP 143/45
[2018-05-22 04:00] VITALS: BP 131/66
[2018-05-22 06:52] LABS: BASOPHILS 0.2 % (0-2); EOSINOPHILS 0 % (0-7); HEMATOCRIT 30.6 % (36.0-48.0); HEMOGLOBIN 10.3 g/dL (12-16); IMMATURE GRANULOCYTES 0.4 % (0-5); LYMPHOCYTES 6.1 % (15-50); MCHC 33.7 g/dL (31.0-37.0); MONOCYTES 9.1 % (2-11); NEUTROPHILS 84.2 % (40-80); PLATELET COUNT 83 10x3/uL (130-400); RBC 3.03 10x6/uL (4.00-5.40); RDW 15.6 % (11.5-14.5); WBC 8.2 10x3/uL (4.8-10.8)
[2018-05-22 07:08] LABS: ALBUMIN 2.5 g/dL (3.4-5.0); BILIRUBIN - TOTAL 1.96 mg/dL (0.2-1.3); CALCIUM 8.3 mg/dL (8.5-10.1); CREATININE - SERUM 0.9 mg/dL (0.6-1.3)
[2018-05-22 07:18] LABS: ANION GAP 10.7 mmol/L (8-16); POTASSIUM - SERUM 2.7 mmol/L (3.5-5.1)
[2018-05-22 07:22] LABS: HEPATITIS C ANTIBODY 0.1 S/CO RAT (0.0-0.9)
[2018-05-22 08:19] VITALS: BP 130/72
[2018-05-22 11:02] VITALS: BP 148/58
[2018-05-22 15:02] VITALS: BP 128/50
[2018-05-23 04:22] LABS: BASOPHILS 0.2 % (0-2); EOSINOPHILS 0 % (0-7); HEMATOCRIT 28.6 % (36.0-48.0); HEMOGLOBIN 9.6 g/dL (12-16); IMMATURE GRANULOCYTES 0.2 % (0-5); LYMPHOCYTES 5.3 % (15-50); MCH 33.8 pg (26.0-34.0); MCHC 33.6 g/dL (31.0-37.0); MCV 100.7 fL (80.0-100.0); MEAN PLATELET VOLUME 10.1 fL (7.4-10.4); MONOCYTES 12.9 % (2-11); NEUTROPHILS 81.4 % (40-80); PLATELET COUNT 69 10x3/uL (130-400); RBC 2.84 10x6/uL (4.00-5.40); RDW 15.8 % (11.5-14.5); WBC 8.9 10x3/uL (4.8-10.8)
[2018-05-23 04:47] LABS: ALBUMIN 2.2 g/dL (3.4-5.0); ALKALINE PHOSPHATASE 138 U/L (46-116); ALT (SGPT) 75 U/L (10-68); BILIRUBIN - TOTAL 1.88 mg/dL (0.2-1.3); CALC OSMOLALITY 265 mosm/kg (275-300); CALCIUM 8.2 mg/dL (8.5-10.1); CARBON DIOXIDE 24.6 mmol/L (21.0-32.0); CHLORIDE - SERUM 100 mmol/L (98-107); CREATININE - SERUM 0.8 mg/dL (0.6-1.3); GLUCOSE 123 mg/dL (74-106); PROTEIN - SERUM 5.4 g/dL (6.4-8.2); SODIUM 133 mmol/L (136-145); UREA NITROGEN 10 mg/dL (7-18); eGFR NON AFRICAN AMERICAN 76 mL/min (90-120)
[2018-05-23 04:58] LABS: POTASSIUM - SERUM 3.3 mmol/L (3.5-5.1)
[2018-05-23 08:07] VITALS: BP 130/50
[2018-05-23 11:34] VITALS: BP 145/53
[2018-05-23 13:18] LABS: AMYLASE - SERUM 38 U/L (25-115); LIPASE 78 U/L (73-393)
[2018-05-23 15:12] VITALS: BP 147/61
[2018-05-23 20:00] VITALS: BP 132/49
[2018-05-24] VITALS: BP 117/75
[2018-05-24 04:00] VITALS: BP 136/40
[2018-05-24 09:08] VITALS: BP 94/61
[2018-05-24 09:56] LABS: BASOPHILS 0.3 % (0-2); EOSINOPHILS 0 % (0-7); HEMATOCRIT 27.8 % (36.0-48.0); HEMOGLOBIN 9.3 g/dL (12-16); IMMATURE GRANULOCYTES 0.3 % (0-5); LYMPHOCYTES 9.9 % (15-50); MCH 33.8 pg (26.0-34.0); MCHC 33.5 g/dL (31.0-37.0); MCV 101.1 fL (80.0-100.0); MEAN PLATELET VOLUME 12.3 fL (7.4-10.4); MONOCYTES 11.7 % (2-11); NEUTROPHILS 77.8 % (40-80); PLATELET COUNT 63 10x3/uL (130-400); RBC 2.75 10x6/uL (4.00-5.40); RDW 16.4 % (11.5-14.5)
[2018-05-24 10:10] LABS: ALBUMIN 2.2 g/dL (3.4-5.0); ALKALINE PHOSPHATASE 136 U/L (46-116); ALT (SGPT) 71 U/L (10-68); BILIRUBIN - TOTAL 2.04 mg/dL (0.2-1.3); CALC OSMOLALITY 271 mosm/kg (275-300); CALCIUM 8.5 mg/dL (8.5-10.1); CARBON DIOXIDE 24.8 mmol/L (21.0-32.0); CHLORIDE - SERUM 104 mmol/L (98-107); CREATININE - SERUM 0.7 mg/dL (0.6-1.3); GLUCOSE 85 mg/dL (74-106); POTASSIUM - SERUM 3.4 mmol/L (3.5-5.1); PROTEIN - SERUM 5.4 g/dL (6.4-8.2); SODIUM 137 mmol/L (136-145); UREA NITROGEN 9 mg/dL (7-18); eGFR NON AFRICAN AMERICAN 88 mL/min (90-120)
[2018-05-24 14:19] VITALS: BP 140/31
[2018-05-24 18:00] VITALS: BP 136/65
[2018-05-24 20:00] VITALS: BP 127/43
[2018-05-25] VITALS: BP 111/48
[2018-05-25 04:00] VITALS: BP 129/55
[2018-05-25 05:17] LABS: BASOPHILS 0.3 % (0-2); EOSINOPHILS 0 % (0-7); HEMATOCRIT 30.5 % (36.0-48.0); IMMATURE GRANULOCYTES 0.3 % (0-5); LYMPHOCYTES 9.9 % (15-50); MCH 33.3 pg (26.0-34.0); MCHC 32.8 g/dL (31.0-37.0); MCV 101.7 fL (80.0-100.0); MEAN PLATELET VOLUME 10.5 fL (7.4-10.4); NEUTROPHILS 78.5 % (40-80); PLATELET COUNT 68 10x3/uL (130-400); RDW 16.3 % (11.5-14.5); WBC 7.9 10x3/uL (4.8-10.8)
[2018-05-25 05:58] LABS: ALBUMIN 2.3 g/dL (3.4-5.0); ALKALINE PHOSPHATASE 138 U/L (46-116); ALT (SGPT) 77 U/L (10-68); BILIRUBIN - TOTAL 1.83 mg/dL (0.2-1.3); CALC OSMOLALITY 272 mosm/kg (275-300); CALCIUM 8.8 mg/dL (8.5-10.1); CHLORIDE - SERUM 103 mmol/L (98-107); CREATININE - SERUM 0.8 mg/dL (0.6-1.3); GLUCOSE 98 mg/dL (74-106); POTASSIUM - SERUM 3.4 mmol/L (3.5-5.1); PROTEIN - SERUM 5.7 g/dL (6.4-8.2); SODIUM 137 mmol/L (136-145); UREA NITROGEN 9 mg/dL (7-18); eGFR NON AFRICAN AMERICAN 76 mL/min (90-120)
[2018-05-25 08:12] VITALS: BP 137/49
[2018-05-25 12:16] VITALS: BP 107/41
[2018-05-25 18:32] VITALS: BP 117/42
[2018-05-25 20:30] VITALS: BP 98/40
[2018-05-26 00:30] VITALS: BP 124/46
[2018-05-26 04:30] VITALS: BP 141/60
[2018-05-26 04:50] LABS: BASOPHILS 0.3 % (0-2); EOSINOPHILS 0 % (0-7); HEMATOCRIT 28.6 % (36.0-48.0); HEMOGLOBIN 9.5 g/dL (12-16); IMMATURE GRANULOCYTES 0.4 % (0-5); LYMPHOCYTES 15.2 % (15-50); MCH 33.7 pg (26.0-34.0); MCHC 33.2 g/dL (31.0-37.0); MCV 101.4 fL (80.0-100.0); MEAN PLATELET VOLUME 10.4 fL (7.4-10.4); NEUTROPHILS 70.1 % (40-80); PLATELET COUNT 69 10x3/uL (130-400); RBC 2.82 10x6/uL (4.00-5.40); RDW 16.1 % (11.5-14.5); WBC 7.4 10x3/uL (4.8-10.8)
[2018-05-26 05:14] LABS: ALBUMIN 2.4 g/dL (3.4-5.0); ANION GAP 12.9 mmol/L (8-16); BILIRUBIN - TOTAL 1.77 mg/dL (0.2-1.3); CALCIUM 8.5 mg/dL (8.5-10.1); CREATININE - SERUM 0.9 mg/dL (0.6-1.3); POTASSIUM - SERUM 3.9 mmol/L (3.5-5.1); PROTEIN - SERUM 5.7 g/dL (6.4-8.2)
[2018-05-26 09:31] VITALS: BP 123/50
[2018-05-26 11:35] VITALS: BP 123/41
[2018-05-26 16:36] VITALS: BP 111/72
[2018-05-26 19:00] VITALS: BP 133/52
[2018-05-27 01:37] VITALS: BP 120/58
[2018-05-27 05:39] LABS: BASOPHILS 0.2 % (0-2); EOSINOPHILS 0 % (0-7); HEMATOCRIT 25.2 % (36.0-48.0); HEMOGLOBIN 8.5 g/dL (12-16); IMMATURE GRANULOCYTES 0.5 % (0-5); LYMPHOCYTES 11.7 % (15-50); MCH 33.7 pg (26.0-34.0); MCHC 33.7 g/dL (31.0-37.0); MEAN PLATELET VOLUME 11.2 fL (7.4-10.4); MONOCYTES 11.6 % (2-11); PLATELET COUNT 70 10x3/uL (130-400); RBC 2.52 10x6/uL (4.00-5.40); RDW 16.2 % (11.5-14.5); WBC 6.6 10x3/uL (4.8-10.8)
[2018-05-27 06:11] VITALS: BP 125/62
[2018-05-27 06:33] LABS: ALBUMIN 2.2 g/dL (3.4-5.0); ALKALINE PHOSPHATASE 121 U/L (46-116); ALT (SGPT) 64 U/L (10-68); CALC OSMOLALITY 272 mosm/kg (275-300); CALCIUM 8.4 mg/dL (8.5-10.1); CARBON DIOXIDE 21.7 mmol/L (21.0-32.0); CHLORIDE - SERUM 104 mmol/L (98-107); CREATININE - SERUM 0.5 mg/dL (0.6-1.3); GLUCOSE 121 mg/dL (74-106); POTASSIUM - SERUM 3.8 mmol/L (3.5-5.1); SODIUM 137 mmol/L (136-145); UREA NITROGEN 7 mg/dL (7-18); eGFR NON AFRICAN AMERICAN > 90 mL/min (90-120)
[2018-05-27 07:30] LABS: PLATELET ESTIMATE DECREASED
[2018-05-27 09:39] VITALS: BP 136/103
[2018-05-27 11:45] VITALS: BP 142/91
[2018-05-27 19:00] VITALS: BP 130/50
[2018-05-28 01:14] VITALS: BP 122/44
[2018-05-28 05:25] VITALS: BP 130/70
[2018-05-28 05:50] LABS: BASOPHILS 0.2 % (0-2); EOSINOPHILS 0 % (0-7); HEMATOCRIT 25.6 % (36.0-48.0); HEMOGLOBIN 8.5 g/dL (12-16); IMMATURE GRANULOCYTES 0.5 % (0-5); LYMPHOCYTES 14.8 % (15-50); MCH 33.7 pg (26.0-34.0); MCHC 33.2 g/dL (31.0-37.0); MCV 101.6 fL (80.0-100.0); MONOCYTES 7.9 % (2-11); NEUTROPHILS 76.6 % (40-80); PLATELET COUNT 60 10x3/uL (130-400); RBC 2.52 10x6/uL (4.00-5.40); RDW 16.2 % (11.5-14.5); WBC 5.7 10x3/uL (4.8-10.8)
[2018-05-28 06:23] LABS: ALBUMIN 1.9 g/dL (3.4-5.0); ALKALINE PHOSPHATASE 106 U/L (46-116); BILIRUBIN - TOTAL 1.25 mg/dL (0.2-1.3); CALC OSMOLALITY 276 mosm/kg (275-300); CALCIUM 8.3 mg/dL (8.5-10.1); CARBON DIOXIDE 25.9 mmol/L (21.0-32.0); CHLORIDE - SERUM 107 mmol/L (98-107); GLUCOSE 101 mg/dL (74-106); POTASSIUM - SERUM 3.5 mmol/L (3.5-5.1); PROTEIN - SERUM 4.9 g/dL (6.4-8.2); SODIUM 140 mmol/L (136-145); UREA NITROGEN 6 mg/dL (7-18)
[2018-05-28 06:35] LABS: ALT (SGPT) 45 U/L (10-68); CREATININE - SERUM 0.8 mg/dL (0.6-1.3); eGFR NON AFRICAN AMERICAN 76 mL/min (90-120)
[2018-05-28 09:27] VITALS: BP 144/61
[2018-05-28 11:33] VITALS: BP 113/63
[2018-05-28 19:45] VITALS: BP 119/42
[2018-05-28 23:35] VITALS: BP 125/25
[2018-05-29 03:34] VITALS: BP 113/59
[2018-05-29 06:15] LABS: BASOPHILS 0 % (0-2); EOSINOPHILS 0 % (0-7); HEMATOCRIT 26.3 % (36.0-48.0); HEMOGLOBIN 8.6 g/dL (12-16); IMMATURE GRANULOCYTES 0.4 % (0-5); LYMPHOCYTES 13.1 % (15-50); MCH 33.5 pg (26.0-34.0); MCHC 32.7 g/dL (31.0-37.0); MCV 102.3 fL (80.0-100.0); MEAN PLATELET VOLUME 10.5 fL (7.4-10.4); MONOCYTES 5.6 % (2-11); NEUTROPHILS 80.9 % (40-80); RBC 2.57 10x6/uL (4.00-5.40); RDW 16.4 % (11.5-14.5)
[2018-05-29 06:19] LABS: PLATELET COUNT 78 10x3/uL (130-400)
[2018-05-29 06:40] LABS: ALBUMIN 2.1 g/dL (3.4-5.0); ALKALINE PHOSPHATASE 108 U/L (46-116); ALT (SGPT) 41 U/L (10-68); BILIRUBIN - TOTAL 1.35 mg/dL (0.2-1.3); CALC OSMOLALITY 273 mosm/kg (275-300); CALCIUM 8.4 mg/dL (8.5-10.1); CARBON DIOXIDE 24.7 mmol/L (21.0-32.0); CHLORIDE - SERUM 102 mmol/L (98-107); CREATININE - SERUM 0.7 mg/dL (0.6-1.3); GLUCOSE 125 mg/dL (74-106); POTASSIUM - SERUM 3.4 mmol/L (3.5-5.1); PROTEIN - SERUM 5.3 g/dL (6.4-8.2); SODIUM 137 mmol/L (136-145); eGFR NON AFRICAN AMERICAN 88 mL/min (90-120)
[2018-05-29 06:41] LABS: UREA NITROGEN 9 mg/dL (7-18)
[2018-05-29 08:22] VITALS: BP 136/50
[2018-05-29 11:39] VITALS: BP 100/50
[2018-05-29 15:30] VITALS: BP 100/54
[2018-05-29 19:45] VITALS: BP 130/43
[2018-05-29 23:45] VITALS: BP 104/32
[2018-05-30 03:55] VITALS: BP 106/39
[2018-05-30 08:35] VITALS: BP 126/54
[2018-05-30 11:34] VITALS: BP 114/57
[2018-05-30 15:16] VITALS: BP 109/44
[2018-05-30 20:00] VITALS: BP 124/41
[2018-05-31 04:00] VITALS: BP 126/50
[2018-05-31 05:10] LABS: BASOPHILS 0.2 % (0-2); EOSINOPHILS 0 % (0-7); HEMATOCRIT 24.2 % (36.0-48.0); IMMATURE GRANULOCYTES 0.5 % (0-5); LYMPHOCYTES 14.9 % (15-50); MCH 34.3 pg (26.0-34.0); MCHC 33.1 g/dL (31.0-37.0); MCV 103.9 fL (80.0-100.0); MEAN PLATELET VOLUME 10.2 fL (7.4-10.4); MONOCYTES 5.6 % (2-11); NEUTROPHILS 78.8 % (40-80); PLATELET COUNT 85 10x3/uL (130-400); RBC 2.33 10x6/uL (4.00-5.40); RDW 16.1 % (11.5-14.5); WBC 6.2 10x3/uL (4.8-10.8)
[2018-05-31 05:23] LABS: ANION GAP 11.8 mmol/L (8-16); BILIRUBIN - TOTAL 0.84 mg/dL (0.2-1.3); CALCIUM 8.5 mg/dL (8.5-10.1); CARBON DIOXIDE 27.3 mmol/L (21.0-32.0); CREATININE - SERUM 0.9 mg/dL (0.6-1.3); POTASSIUM - SERUM 4.1 mmol/L (3.5-5.1); PROTEIN - SERUM 5.4 g/dL (6.4-8.2)
[2018-05-31 09:56] VITALS: BP 107/49
[2018-05-31 16:17] VITALS: BP 120/86
[2018-05-31 20:30] VITALS: BP 128/44
[2018-06-01 04:30] VITALS: BP 127/40
[2018-06-01 06:33] LABS: BASOPHILS 0.2 % (0-2); EOSINOPHILS 0 % (0-7); HEMATOCRIT 25.2 % (36.0-48.0); HEMOGLOBIN 8.4 g/dL (12-16); IMMATURE GRANULOCYTES 0.8 % (0-5); LYMPHOCYTES 15.3 % (15-50); MCH 34.7 pg (26.0-34.0); MCHC 33.3 g/dL (31.0-37.0); MCV 104.1 fL (80.0-100.0); MEAN PLATELET VOLUME 10.8 fL (7.4-10.4); NEUTROPHILS 72.7 % (40-80); PLATELET COUNT 100 10x3/uL (130-400); RBC 2.42 10x6/uL (4.00-5.40); RDW 16.3 % (11.5-14.5)
[2018-06-01 06:50] LABS: ALBUMIN 2.5 g/dL (3.4-5.0); ANION GAP 12.8 mmol/L (8-16); BILIRUBIN - TOTAL 1.11 mg/dL (0.2-1.3); CALCIUM 9.4 mg/dL (8.5-10.1); CARBON DIOXIDE 27.7 mmol/L (21.0-32.0); CREATININE - SERUM 0.9 mg/dL (0.6-1.3); POTASSIUM - SERUM 4.5 mmol/L (3.5-5.1); PROTEIN - SERUM 6.2 g/dL (6.4-8.2)
[2018-06-01 09:23] VITALS: BP 119/42
[2018-06-01 11:53] VITALS: BP 109/28
[2018-06-01 14:52] VITALS: BP 124/37
[2018-06-01 20:30] VITALS: BP 137/40
[2018-06-02 05:50] LABS: BASOPHILS 0.3 % (0-2); EOSINOPHILS 0 % (0-7); HEMATOCRIT 22.9 % (36.0-48.0); IMMATURE GRANULOCYTES 0.3 % (0-5); LYMPHOCYTES 13.3 % (15-50); MCH 34.2 pg (26.0-34.0); MCHC 32.8 g/dL (31.0-37.0); MCV 104.6 fL (80.0-100.0); MEAN PLATELET VOLUME 10.4 fL (7.4-10.4); MONOCYTES 9.2 % (2-11); NEUTROPHILS 76.9 % (40-80); PLATELET COUNT 107 10x3/uL (130-400); RBC 2.19 10x6/uL (4.00-5.40); RDW 16.6 % (11.5-14.5)
[2018-06-02 05:59] LABS: HEMOGLOBIN 7.5 g/dL (12-16)
[2018-06-02 06:13] LABS: ALBUMIN 2.4 g/dL (3.4-5.0); ANION GAP 12.1 mmol/L (8-16); BILIRUBIN - TOTAL 0.88 mg/dL (0.2-1.3); CALCIUM 8.8 mg/dL (8.5-10.1); CARBON DIOXIDE 26.8 mmol/L (21.0-32.0); CREATININE - SERUM 0.9 mg/dL (0.6-1.3); POTASSIUM - SERUM 3.9 mmol/L (3.5-5.1); PROTEIN - SERUM 5.9 g/dL (6.4-8.2)
[2018-06-02 07:57] VITALS: BP 125/40
[2018-06-02 10:40] VITALS: BP 149/76
[2018-06-02 10:43] VITALS: BP 121/49
[2018-06-02 15:43] VITALS: BP 123/41
[2018-06-02 22:11] VITALS: BP 118/34
[2018-06-03 01:13] VITALS: BP 117/40
[2018-06-03 05:18] VITALS: BP 141/46
[2018-06-03 06:35] LABS: BASOPHILS 0.4 % (0-2); EOSINOPHILS 0 % (0-7); HEMATOCRIT 24.1 % (36.0-48.0); HEMOGLOBIN 7.8 g/dL (12-16); IMMATURE GRANULOCYTES 0.2 % (0-5); LYMPHOCYTES 20.8 % (15-50); MCH 34.2 pg (26.0-34.0); MCHC 32.4 g/dL (31.0-37.0); MCV 105.7 fL (80.0-100.0); MEAN PLATELET VOLUME 10.5 fL (7.4-10.4); MONOCYTES 10.9 % (2-11); NEUTROPHILS 67.7 % (40-80); PLATELET COUNT 112 10x3/uL (130-400); RBC 2.28 10x6/uL (4.00-5.40); RDW 17.2 % (11.5-14.5); WBC 4.7 10x3/uL (4.8-10.8)
[2018-06-03 07:17] LABS: ALBUMIN 2.5 g/dL (3.4-5.0); ANION GAP 14.1 mmol/L (8-16); BILIRUBIN - TOTAL 1.02 mg/dL (0.2-1.3); CALCIUM 8.6 mg/dL (8.5-10.1); CARBON DIOXIDE 27.9 mmol/L (21.0-32.0); CREATININE - SERUM 0.9 mg/dL (0.6-1.3); PROTEIN - SERUM 6.3 g/dL (6.4-8.2)
[2018-06-03 08:39] VITALS: BP 126/61
[2018-06-03 11:16] VITALS: BP 123/61
[2018-06-03 15:48] VITALS: BP 120/66
[2018-06-03 21:07] VITALS: BP 138/47
[2018-06-04] VITALS (7 sets, daily range): BP systolic 107–161; BP diastolic 36–64
[2018-06-04 05:40] LABS: BASOPHILS 0.6 % (0-2); EOSINOPHILS 0 % (0-7); HEMATOCRIT 23.4 % (36.0-48.0); IMMATURE GRANULOCYTES 0.4 % (0-5); LYMPHOCYTES 16.8 % (15-50); MCH 34.6 pg (26.0-34.0); MCHC 32.1 g/dL (31.0-37.0); MEAN PLATELET VOLUME 10.5 fL (7.4-10.4); MONOCYTES 13.5 % (2-11); NEUTROPHILS 68.7 % (40-80); PLATELET COUNT 115 10x3/uL (130-400); RBC 2.17 10x6/uL (4.00-5.40); RDW 17.7 % (11.5-14.5); WBC 5.2 10x3/uL (4.8-10.8)
[2018-06-04 05:45] LABS: HEMOGLOBIN 7.5 g/dL (12-16); MCV 107.8 fL (80.0-100.0)
[2018-06-04 06:10] LABS: ALBUMIN 2.3 g/dL (3.4-5.0); ANION GAP 15.1 mmol/L (8-16); BILIRUBIN - TOTAL 0.77 mg/dL (0.2-1.3); CALCIUM 8.5 mg/dL (8.5-10.1); CREATININE - SERUM 0.9 mg/dL (0.6-1.3); POTASSIUM - SERUM 4.1 mmol/L (3.5-5.1); PROTEIN - SERUM 6.1 g/dL (6.4-8.2)
[2018-06-05 03:55] VITALS: BP 127/49
[2018-06-05 05:46] LABS: ANION GAP 11.6 mmol/L (8-16); CALCIUM 8.9 mg/dL (8.5-10.1); CARBON DIOXIDE 27.5 mmol/L (21.0-32.0); CREATININE - SERUM 0.9 mg/dL (0.6-1.3); POTASSIUM - SERUM 4.1 mmol/L (3.5-5.1)
[2018-06-05 06:34] LABS: BASOPHILS 0.9 % (0-2); EOSINOPHILS 0 % (0-7); HEMATOCRIT 23.8 % (36.0-48.0); IMMATURE GRANULOCYTES 0.2 % (0-5); LYMPHOCYTES 17.3 % (15-50); MCH 34.4 pg (26.0-34.0); MCHC 31.5 g/dL (31.0-37.0); MCV 109.2 fL (80.0-100.0); MEAN PLATELET VOLUME 11.1 fL (7.4-10.4); MONOCYTES 12.3 % (2-11); NEUTROPHILS 69.3 % (40-80); PLATELET COUNT 125 10x3/uL (130-400); RBC 2.18 10x6/uL (4.00-5.40); RDW 17.8 % (11.5-14.5); WBC 4.6 10x3/uL (4.8-10.8)
[2018-06-05 06:36] LABS: HEMOGLOBIN 7.5 g/dL (12-16)
[2018-06-05 07:41] VITALS: BP 121/43
[2018-06-05 11:27] VITALS: BP 134/46
[2018-06-05] MEDS ORDERED: ENTRESTO 24 MG1 EACH PO (13:22)
== END 2018-06-05 16:23 | DRG 871 ==
LOC: D.ER 13:51 → D.M2 22:42
PROVIDERS: Emergency Medicine; Family Medicine
DX: A41.9 Sepsis, unspecified organism (principal); K72.00 Acute and subacute hepatic failure without coma; G93.41 Metabolic encephalopathy; N39.0 Urinary tract infection, site not specified; I24.8 Other forms of acute ischemic heart disease; I50.22 Chronic systolic (congestive) heart failure; I25.5 Ischemic cardiomyopathy; I11.0 Hypertensive heart disease with heart failure; I25.10 Atherosclerotic heart disease of native coronary artery without angina pectoris; J44.9 Chronic obstructive pulmonary disease, unspecified; F41.9 Anxiety disorder, unspecified; R41.0 Disorientation, unspecified; F32.9 Major depressive disorder, single episode, unspecified; S70.12XA Contusion of left thigh, initial encounter; X58.XXXA Exposure to other specified factors, initial encounter; Z63.4 Disappearance and death of family member; Z98.61 Coronary angioplasty status; Z86.73 Personal history of transient ischemic attack (TIA), and cerebral infarction without residual deficits; Z87.891 Personal history of nicotine dependence

== ENCOUNTER 2018-06-09 10:47 | Outpatient (CLI) | payer MEDICARE, BC ==
[~2018-06-09] VITALS: Ht 149.9 cm; Wt 79.4 kg
[~2018-06-09 10:47] MED LIST changes: +ENTRESTO 24 MG1 EACH PO
[2018-06-09 11:14] LABS: BASOPHILS 0.6 % (0-2); EOSINOPHILS 0 % (0-7); HEMATOCRIT 26.1 % (36.0-48.0); HEMOGLOBIN 8.4 g/dL (12-16); IMMATURE GRANULOCYTES 0.4 % (0-5); LYMPHOCYTES 13.8 % (15-50); MCH 35.4 pg (26.0-34.0); MCHC 32.2 g/dL (31.0-37.0); MCV 110.1 fL (80.0-100.0); MEAN PLATELET VOLUME 10.1 fL (7.4-10.4); MONOCYTES 10.9 % (2-11); NEUTROPHILS 74.3 % (40-80); RBC 2.37 10x6/uL (4.00-5.40); RDW 18.9 % (11.5-14.5); WBC 5.2 10x3/uL (4.8-10.8)
[2018-06-09 11:25] LABS: PLATELET COUNT 182 10x3/uL (130-400)
[2018-06-09 13:16] VITALS: BP 135/40; Ht 149.9 cm; Wt 79.4 kg
== END 2018-06-09 20:55 | disposition home or self-care (01) ==
LOC: D.OPS 10:47
PROVIDERS: Family Medicine
DX: D64.9 Anemia, unspecified (principal)

== ENCOUNTER 2018-08-06 12:54 | Inpatient (IN) | payer MEDICARE, BC ==
[~2018-08-06] VITALS: Ht 149.9 cm; Wt 81.6 kg
[2018-08-06 15:46] LABS: BASOPHILS 0.4 % (0-2); EOSINOPHILS 0.9 % (0-7); HEMATOCRIT 29.1 % (36.0-48.0); HEMOGLOBIN 9.8 g/dL (12-16); IMMATURE GRANULOCYTES 0.2 % (0-5); LYMPHOCYTES 7.7 % (15-50); MCH 35.1 pg (26.0-34.0); MCHC 33.7 g/dL (31.0-37.0); MCV 104.3 fL (80.0-100.0); MONOCYTES 8.2 % (2-11); NEUTROPHILS 82.6 % (40-80); PLATELET COUNT 100 10x3/uL (130-400); RBC 2.79 10x6/uL (4.00-5.40); RDW 15.4 % (11.5-14.5); WBC 5.6 10x3/uL (4.8-10.8)
[2018-08-06 16:11] LABS: ALBUMIN 3.7 g/dL (3.4-5.0); ANION GAP 18.3 mmol/L (8-16); BILIRUBIN - TOTAL 0.87 mg/dL (0.2-1.3); CALCIUM 8.4 mg/dL (8.5-10.1); CARBON DIOXIDE 23.5 mmol/L (21.0-32.0); CREATININE - SERUM 1.5 mg/dL (0.6-1.3); POTASSIUM - SERUM 4.8 mmol/L (3.5-5.1); PROTEIN - SERUM 7.4 g/dL (6.4-8.2)
[2018-08-06 16:17] LABS: MAGNESIUM - SERUM 1.8 mg/dL (1.8-2.4)
--- NOTE | 2018-08-06 17:19 | NUR ---
PT RECIEVED FROM ER. NO SIGNS OF DISTRESS. IV TO LEFT HAND PATENT NO REDNESS OR TENDERNESS. ON 3L NC. DENIES ANY OTHER NEED AT THIS TIME. CALL LIGHT IN REACH. BED LOW POSITION. FAMILY AT BEDSIDE.
[2018-08-06 17:44] VITALS: BP 144/56; BMI 36.4
[2018-08-06 21:20] VITALS: BP 94/55
[2018-08-07 00:30] VITALS: BP 151/58
--- NOTE | 2018-08-07 03:35 | NUR ---
RESTING QUITELY IN BED RESP UNLABORED NO APPARENT DISTRESS CALL LIGHT IN REACH
[2018-08-07 05:56] LABS: BASOPHILS 0.2 % (0-2); EOSINOPHILS 5.7 % (0-7); HEMATOCRIT 27.1 % (36.0-48.0); HEMOGLOBIN 9.2 g/dL (12-16); IMMATURE GRANULOCYTES 0.2 % (0-5); LYMPHOCYTES 7.1 % (15-50); MCH 34.8 pg (26.0-34.0); MCHC 33.9 g/dL (31.0-37.0); MCV 102.7 fL (80.0-100.0); MEAN PLATELET VOLUME 9.8 fL (7.4-10.4); MONOCYTES 8.1 % (2-11); NEUTROPHILS 78.7 % (40-80); PLATELET COUNT 92 10x3/uL (130-400); RBC 2.64 10x6/uL (4.00-5.40); RDW 15.2 % (11.5-14.5); WBC 4.9 10x3/uL (4.8-10.8)
[2018-08-07 06:32] LABS: ALBUMIN 3.3 g/dL (3.4-5.0); ANION GAP 17.4 mmol/L (8-16); BILIRUBIN - TOTAL 0.8 mg/dL (0.2-1.3); CALCIUM 8.6 mg/dL (8.5-10.1); CARBON DIOXIDE 24.1 mmol/L (21.0-32.0); CREATININE - SERUM 1.3 mg/dL (0.6-1.3); PROTEIN - SERUM 7.2 g/dL (6.4-8.2)
[2018-08-07 06:37] LABS: POTASSIUM - SERUM 3.5 mmol/L (3.5-5.1)
[2018-08-07 06:53] LABS: PLATELET ESTIMATE DECREASED
--- NOTE | 2018-08-07 08:30 | NUR ---
PATIENT SITTING UP IN BED WATCHING TV AT THIS TIME. NO COMPLAINTS OR SIGNS OF DISTRESS. CALL LIGHT WITHIN REACH.
[2018-08-07 12:45] VITALS: BP 155/63
[2018-08-07 12:54] VITALS: BP 147/51
[2018-08-07 13:08] VITALS: BMI 36.3
[2018-08-07] MEDS ORDERED: ATARAX 25 MG TA25 MG PO (13:39)
[2018-08-07] MEDS ORDERED: LEVOTHYROXINE50 MCG PO (13:40)
--- NOTE | 2018-08-07 15:04 | NUR ---
PT HAS BAD COUGH STATES ABD AND CHEST HURTS FROM COUGHING SO MUCH, WILL CALL DOCTOR FOR COUGH SUPPRESSANT
[2018-08-07 16:57] VITALS: BP 109/44
[2018-08-07 20:25] VITALS: BP 148/46
--- NOTE | 2018-08-07 21:07 | NUR ---
PATIENT ALERT AND ORENTED ABLE TO VOICE NEEDS AND WANTS TO STAFF. CALL LIGHT IN REACH PRN MEDICATION FOR ITCHING GIVEN PER REQUIST. NO OTHER NEEDS AT THIS TIME CALL LIGHT IN REACH.
[2018-08-08 00:14] VITALS: BP 161/44
[2018-08-08 04:19] VITALS: BP 144/67
[2018-08-08 05:29] LABS: BASOPHILS 0.3 % (0-2); EOSINOPHILS 6.2 % (0-7); HEMATOCRIT 26.7 % (36.0-48.0); HEMOGLOBIN 9.1 g/dL (12-16); MCH 34.9 pg (26.0-34.0); MCHC 34.1 g/dL (31.0-37.0); MCV 102.3 fL (80.0-100.0); MEAN PLATELET VOLUME 9.9 fL (7.4-10.4); MONOCYTES 8.2 % (2-11); NEUTROPHILS 76.3 % (40-80); PLATELET COUNT 100 10x3/uL (130-400); RBC 2.61 10x6/uL (4.00-5.40); RDW 15.1 % (11.5-14.5); WBC 3.9 10x3/uL (4.8-10.8)
[2018-08-08 05:39] LABS: ANION GAP 13.1 mmol/L (8-16); BILIRUBIN - TOTAL 0.69 mg/dL (0.2-1.3); CALCIUM 8.6 mg/dL (8.5-10.1); POTASSIUM - SERUM 3.1 mmol/L (3.5-5.1); PROTEIN - SERUM 6.7 g/dL (6.4-8.2)
--- NOTE | 2018-08-08 07:46 | NUR ---
PT LAYING IN BED THIS AM, RESPIRATIONS SHALLOW. O2 @ 3L VIA NC. WHEEZES NOTED IN BILAT UPPER LOBES, BASES SOUND CLEAR. BOWEL SOUNDS PRESENT X4 QUAD. DENIES NEEDS AT THIS TIME. PT GIVEN AN INCENTIVE SPIROMETER AND INSTRUCTED ON ITS USE. PT VERBALIZED UNDERSTANDING. BED LOW AND LOCKED, SR UP X2, CL IN EASY REACH. WILL CONTINUE TO MONITOR.
[2018-08-08 08:45] VITALS: BP 133/45
[2018-08-08 09:49] LABS: APPEARANCE CLEAR (CLEAR); BILIRUBIN NEGATIVE (NEGATIVE); COLOR STRAW (YELLOW); GLUCOSE NEGATIVE (NEGATIVE); KETONE NEGATIVE (NEGATIVE); NITRITE NEGATIVE (NEGATIVE); PH 5.5 (5.0-6.0); PROTEIN NEGATIVE (NEGATIVE); SPECIFIC GRAVITY 1.005 (1.005-1.020); UROBILINOGEN NORMAL (NORMAL)
[2018-08-08 12:45] VITALS: BP 135/49
[2018-08-08 16:00] VITALS: BP 116/41
--- NOTE | 2018-08-08 16:48 | NUR ---
RESTING QUIETLY IN BED. DENIES NEEDS. NO C/O AT THIS TIME. COLOR WNL.
--- NOTE | 2018-08-08 17:11 | NUR ---
PT C/O MILD HEADACHE AFTER TYLENOL WAS GIVEN. DENIES NEEDS AT THIS TIME. CL IN EASY REACH.
--- NOTE | 2018-08-08 19:15 | NUR ---
THE PATIENT WAS LYING IN BED, WATCHING TELEVISION, WHEN STAFF ENTERED HER AREA. BED IS IN THE LOW POSITION WITH SIDERAILS X2 AND CALL LIGHT WITHIN REACH. THE PATIENT DEMONSTRATES APPROPRIATE USE OF A CALL LIGHT. THE PATIENT APPEARS COMFORTABLE WITH NO QUESTIONS OR CONCERNS AT THIS TIME.
[2018-08-08 20:00] VITALS: BP 122/42
[2018-08-09] VITALS (7 sets, daily range): BP systolic 106–143; BP diastolic 32–61
--- NOTE | 2018-08-09 02:29 | NUR ---
THE PATIENT APPEARS TO BE SLEEPING COMFORTABLY. BED IN LOW POSITION WITH SIDERAILS X2 AND CALL LIGHT WITHIN REACH.
[2018-08-09 06:23] LABS: BASOPHILS 0.3 % (0-2); EOSINOPHILS 9.2 % (0-7); HEMOGLOBIN 9.4 g/dL (12-16); LYMPHOCYTES 12.8 % (15-50); MCH 34.6 pg (26.0-34.0); MCHC 33.6 g/dL (31.0-37.0); MCV 102.9 fL (80.0-100.0); MEAN PLATELET VOLUME 9.8 fL (7.4-10.4); MONOCYTES 9.5 % (2-11); NEUTROPHILS 68.2 % (40-80); RBC 2.72 10x6/uL (4.00-5.40); RDW 15.1 % (11.5-14.5); WBC 3.7 10x3/uL (4.8-10.8)
[2018-08-09 06:31] LABS: PLATELET COUNT 122 10x3/uL (130-400)
[2018-08-09 07:05] LABS: ALBUMIN 3.2 g/dL (3.4-5.0); ANION GAP 14.6 mmol/L (8-16); BILIRUBIN - TOTAL 0.72 mg/dL (0.2-1.3); CALCIUM 8.8 mg/dL (8.5-10.1); CARBON DIOXIDE 28.8 mmol/L (21.0-32.0); CREATININE - SERUM 1.2 mg/dL (0.6-1.3); PROTEIN - SERUM 6.9 g/dL (6.4-8.2)
[2018-08-09 07:11] LABS: POTASSIUM - SERUM 4.4 mmol/L (3.5-5.1)
--- NOTE | 2018-08-09 08:51 | NUR ---
PT SITTING UP ON SIDE OF BED EATING BREAKFAST. RESPIRATIONS EVEN AND UNLABORED, WHEEZES NOTED IN BILAT UPPER LOBES. LOWER LOBES CLEAR TO AUSCULTATION. O2 @ 3L VIA NC. CHADSIN GIVEN THIS AM FOR COUGH. REMINDED OF INCENTIVE SPIROMETER AND INSTRUCTED ON IT'S USE ONCE MORE. DENIES FURTHER NEEDS. BED LOW AND LOCKED, SR UP X2, CL IN EASY REACH. WILL CONTIUE TO MONITOR THROUGHOUT THE DAY.
--- NOTE | 2018-08-09 17:47 | NUR ---
IV TO RIGHT HAND BUBBLED UP AND REMOVED. TIP INTACT. IV TO BE RESITED LATER AFTER PT FINISHES WITH MEAL. DENIES NEEDS AT THIS TIME. CL IN EASY REACH.
--- NOTE | 2018-08-09 18:48 | NUR ---
RESPIRATIONS SHALLW WITH EXPIRATORY WHEEZES TO BIALT UPER LOBES. O2 3 LITERS N/C. DENIES ANY PAIN OR DISCOMFORT AT THIS TIME. ENCOURAGED TO USE CALL LIGHT FOR ASSIST.
--- NOTE | 2018-08-09 19:35 | NUR ---
LYING IN BED. ALERT AND ORIENTED X4. RESP IRREG. SOB WITH MIN EXERTION. O2 @ 3L/NC. BBS RHONCHI BUT DIMINISHED IN BLL. BRUISES NOTED TO BUE AND BLE. NO IV ACCESS AT THIS TIME. NO EDEMA NOTED. AMB WITH ASSIST X1. NO DISTRESS. SR ELEVATED X2. CL IN REACH.
--- NOTE | 2018-08-09 20:55 | NUR ---
MEDICATED WITH TYLENOL FOR C/O H/A.
[2018-08-10] VITALS: BP 110/51
--- NOTE | 2018-08-10 00:30 | NUR ---
IV RESTARTED PER DIMPLE DEL RIO IN ER AFTER ATTEMPT X6 WAS MADE PER FLOOR NURSES. SALINE LOCK TO RT WRIST. PT MASOOD WELL.
[2018-08-10 03:00] VITALS: BP 110/51
[2018-08-10 05:38] LABS: BASOPHILS 0.6 % (0-2); EOSINOPHILS 11.2 % (0-7); HEMATOCRIT 27.9 % (36.0-48.0); HEMOGLOBIN 9.4 g/dL (12-16); IMMATURE GRANULOCYTES 0.3 % (0-5); LYMPHOCYTES 13.8 % (15-50); MCH 34.7 pg (26.0-34.0); MCHC 33.7 g/dL (31.0-37.0); MEAN PLATELET VOLUME 9.7 fL (7.4-10.4); MONOCYTES 12.6 % (2-11); NEUTROPHILS 61.5 % (40-80); PLATELET COUNT 133 10x3/uL (130-400); RBC 2.71 10x6/uL (4.00-5.40); WBC 3.4 10x3/uL (4.8-10.8)
[2018-08-10 06:06] LABS: ALBUMIN 3.1 g/dL (3.4-5.0); ANION GAP 13.4 mmol/L (8-16); BILIRUBIN - TOTAL 0.62 mg/dL (0.2-1.3); CALCIUM 9.1 mg/dL (8.5-10.1); CARBON DIOXIDE 29.8 mmol/L (21.0-32.0); CREATININE - SERUM 1.3 mg/dL (0.6-1.3); POTASSIUM - SERUM 4.2 mmol/L (3.5-5.1); PROTEIN - SERUM 6.8 g/dL (6.4-8.2)
[2018-08-10 08:24] VITALS: BP 130/43
--- NOTE | 2018-08-10 09:00 | NUR ---
PT SITTING ON SIDE OF BED EATING BREAKFAST AT THIS TIME. ROUTINE MEDS GIVEN, RESPIRATIONS EVEN AND UNLABORED, NO S/S OF DISTRESS NOTED. LUNGS SOUND CLEAR TODAY WITH SLIGHT RHONCHI NOTED IN RIGHT UPPER LOBE. O2 @ 3L VIA NC. ROBITUSSIN GIVEN PER EMAR ORDER FOR HACKING COUGH. DENIES FURTHER NEEDS. BED LOW AND LOCKED, SR UP X2, CL IN EASY REACH. WILL CONTINUE TO MONITOR.
[2018-08-10 12:30] VITALS: BP 122/37
[2018-08-10 16:30] VITALS: BP 117/37
--- NOTE | 2018-08-10 17:31 | NUR ---
PT LAYING IN BED AT THIS TIME, VOICES THAT SHE HAS SPUTUM IN HER THROAT. INSTRUCTED TO COUGH IT UP AND VOICED THAT WE CAN WALK HER AROUND THE UNIT TO HELP BREAK UP THOSE SECRETIONS. DENIES NEEDS. CL IN EASY REACH.
--- NOTE | 2018-08-10 19:35 | NUR ---
SITTING UP IN BED WATCHING TV. ALERT AND ORIENTED X4. GEN WEAKNESS NOTED. TALKATIVE WITH STAFF. RESP LABORED, IRREG. O2 @ 3L/NC. NONPROD COUGH NOTED. 1+ EDEMA NOTED TO BLE. AMB WITH ASSIST X1. SALINE LOCK NOTED TO RT WRIST. DENIES PAIN. BRUISES NOTED TO BUE AND BLE. SR ELEVATED X2. CL IN REACH.
[2018-08-10 20:00] VITALS: BP 122/39
[2018-08-11] VITALS: BP 125/58
[2018-08-11 03:00] VITALS: BP 107/34
[2018-08-11 06:39] LABS: BASOPHILS 0.2 % (0-2); EOSINOPHILS 8.3 % (0-7); HEMATOCRIT 27.4 % (36.0-48.0); HEMOGLOBIN 9.2 g/dL (12-16); IMMATURE GRANULOCYTES 0.2 % (0-5); LYMPHOCYTES 13.5 % (15-50); MCH 34.6 pg (26.0-34.0); MCHC 33.6 g/dL (31.0-37.0); MEAN PLATELET VOLUME 10.1 fL (7.4-10.4); MONOCYTES 13.2 % (2-11); NEUTROPHILS 64.6 % (40-80); PLATELET COUNT 134 10x3/uL (130-400); RBC 2.66 10x6/uL (4.00-5.40); RDW 15.2 % (11.5-14.5); WBC 4.1 10x3/uL (4.8-10.8)
[2018-08-11 07:12] LABS: ALBUMIN 3.1 g/dL (3.4-5.0); BILIRUBIN - TOTAL 0.55 mg/dL (0.2-1.3); CALCIUM 8.9 mg/dL (8.5-10.1); CARBON DIOXIDE 27.9 mmol/L (21.0-32.0); CREATININE - SERUM 1.2 mg/dL (0.6-1.3); PROTEIN - SERUM 6.3 g/dL (6.4-8.2)
--- NOTE | 2018-08-11 07:15 | NUR ---
MORNING ASSESSMET COMPLETE. PT LYING IN BED AAO X4 TO PERSON, PLACE, TIME, AND SITUATION. DENIES NEEDS AT THSI TIME. CL IN REACH. SIDE RAILS UP X3 FOR PATIENT SAFETY
[2018-08-11 07:18] LABS: ANION GAP 14.3 mmol/L (8-16); POTASSIUM - SERUM 5.2 mmol/L (3.5-5.1)
[2018-08-11] MEDS ORDERED: JANUVIA100 MG PO (08:04)
[2018-08-11 08:28] VITALS: BP 123/51
[2018-08-11 11:49] VITALS: BP 101/43
--- NOTE | 2018-08-11 13:25 | NUR ---
NUTRITION F/U PT TOLERATING DIABETIC DIET WITH 75% INTAKE BREAKFAST. WILL CONTINUE TO PROVIDE DIET, MONITOR PO INTAKE. RD FOLLOWING
[2018-08-11 16:02] VITALS: BP 125/44
[2018-08-11 20:55] VITALS: BP 117/37
--- NOTE | 2018-08-11 22:53 | NUR ---
rec'd.in bathroom assisted back to bed.denies any distress at present time does c/o sob on minimal activity will continue to monitor for any chges. in resp. status and follow current plan of care.
--- NOTE | 2018-08-12 01:35 | NUR ---
PT LYING IN BED RESTING, NO SIGNS OF DISTRESS. AGREE W/ SUPERVISOR PHOTOENGRAVING ASSESMENT. CL IN REACH, WILL CONTINUE TO MONITOR
[2018-08-12 02:14] VITALS: BP 102/28
[2018-08-12 04:32] VITALS: BP 100/48
--- NOTE | 2018-08-12 07:30 | NUR ---
PT AAOX4 RESP EVEN AND NONLABORED, NO SIGNS OF DISTRESS NOTED, REQUESTING TO GO TO BATHROOM AT THIS TIME, ASSISTED PT NO OTHER NEEDS EXPRESSED, CL IN REACH
--- NOTE | 2018-08-12 09:31 | MORECARE ---
CASE MANAGEMENT DISCHARGE SUMMARY PATIENT: CELESTINE VANEGAS UNIT: [id number] ADM DATE: 08/06/18 AGE: 68 : 52 SEX: F ROOM/BED: D.[facility] AUTHOR: REGINA REDDY PHYSICIAN: REFERRING PHYSICIAN: RUSTY SIMS MD DATE OF SERVICE: 08/12/18 Discharge Plan Patient Name: CELESTINE VANEGAS [facility] : 1950 Planned Disposition: Home Hlth Svc w Plan Readm Anticipated Discharge Date: 08/12/18 Discharge Date: Expected LOS: 6 Initial Reviewer: [id number] Initial Review Date: 08/12/2018 Generated: 08/12/18 10:31 am Patient Name: CELESTINE VANEGAS Page 53448 at 0931 All edits/amendments must be made on the electronic document DICTATION DATE: 08/12/18929 WEB ADMINISTRATOR: NADIR 08/12/18929 RPT#: [id number] DC DATE: STATUS: ADM IN [facility] [address] [place] [address] END OF REPORT
[2018-08-12 09:38] VITALS: BP 118/42
--- NOTE | 2018-08-12 09:39 | MORECARE ---
CASE MANAGEMENT DISCHARGE SUMMARY PATIENT: CELESTINE VANEGAS UNIT: [id number] ADM DATE: 08/06/18 AGE: 68 : 51 SEX: F ROOM/BED: D.2237 AUTHOR: REGINA REDDY PHYSICIAN: REFERRING PHYSICIAN: RUSTY SIMS MD DATE OF SERVICE: 08/12/18 Discharge Plan Patient Name: CELESTINE VANEGAS Facility: [facility]:[place] : 1950 Planned Disposition: Home Hlth Svc w Plan Readm Anticipated Discharge Date: 08/12/18 Discharge Date: Expected LOS: 6 Initial Reviewer: [email or web address] Initial Review Date: 08/12/2018 Generated: 08/12/18 10:39 am Comments DCP- Discharge Planning Updated by [email or web address]: Mony Jean Baptiste on 08/12/18 8:[address] Patient Name: CELESTINE VANEGAS Admission Status: ER Accout number: [id number] Admission Date: 08-06-2018 : 1950 Admission Diagnosis:SHORTNESS OF BREATH Attending: RUSTY SIMS Current LOS: 6 Anticipated DC Date: 08-12-2018 Planned Disposition: Home Hlth Svc w Plan Readm Primary Insurance: MEDICARE A & B Discharge Planning Comments: CM met with patient to discuss discharge planning, she is alone in the room. States she lives alone in a single story home. She uses her cane for ambulation, otherwise is independent with ADL's. States her daughter, Ivana, lives next door and will take her home on discharge. I discussed the availability of additional DME, rehab, SNF and home health. She states her plan is to return home with [facility], [facility] for [facility] signed. I called Tr[facility] with [facility] and they will accept her back on discharge. Declines need for additional DME and declines rehab services. CM will continue to follow and assist with discharge planning/needs. Real Estate Appraiser Supervisor: Mony Jean Baptiste DCPIA - Discharge Planning Initial Assessment Updated by [email or web address]: Mony Jean Baptiste on 08/12/18 9:34 am * Is the patient Alert and Oriented? Yes * How many steps to enter\exit or inside your home? 6/0 * PCP Dr. Sims * Pharmacy [facility] 7N * Preadmission Environment Home Alone * ADLs Partial Dependent * Partial ADLs (Assistance needed) Ambulation * Equipment Cane Nebulizer Other Oxygen Walker * Other Equipment Portable oxygen * List name and contact numbers for known caregivers / representatives who currently or will assist patient after discharge: Ivana Bueno - DTR - [phone] * Verbal permission to speak to the caregivers and representatives has been obtained from the patient. Yes * Community resources currently utilized Home Health * Please name any agencies selected above. [facility] choice is [facility] * Additional services required to return to the preadmission environment? No * Can the patient safely return to the preadmission environment? Yes * Has this patient been hospitalized within the prior 30 days at any hospital? No Last DP export: 08/12/18 8:31 a Patient Name: CELESTINE VANEGAS Page [id number] at 0939 All edits/amendments must be made on the electronic document DICTATION DATE: 08/12/18937 OFFICE SERVICES SPECIALIST: NADIR 08/12/18937 RPT#: [id number] DC DATE: STATUS: ADM IN [facility] [address] [place] [address] END OF REPORT
[2018-08-12 12:04] VITALS: BP 115/57
[2018-08-12 17:24] VITALS: BP 116/38
[2018-08-12 20:27] VITALS: BP 121/38
[2018-08-13 00:11] VITALS: BP 115/41
--- NOTE | 2018-08-13 03:41 | NUR ---
PT LYING IN BED RESTING, NO SIGNS OF DISTRESS. DENIES NEEDS. AGREE W/ TILE MACHINE OPERATOR ASSESSMENT. CL IN REACH, WILL CONTINUE TO MONITOR
[2018-08-13 04:33] VITALS: BP 102/23
[2018-08-13 13:56] VITALS: BP 108/54
[2018-08-13 17:12] VITALS: BP 121/71
--- NOTE | 2018-08-13 18:28 | NUR ---
PATIENT READY FOR DISCHARGE WAITING ON DAUGHTER. VERBALIZED UNDERSTANDING OF DISCHARGE INSTRUCTIONS.
[2018-08-14 06:24] LABS: ANION GAP 13.5 mmol/L (8-16); CALCIUM 8.7 mg/dL (8.5-10.1); CARBON DIOXIDE 26.8 mmol/L (21.0-32.0); CREATININE - SERUM 1.8 mg/dL (0.6-1.3); POTASSIUM - SERUM 4.3 mmol/L (3.5-5.1)
[2018-08-14 08:21] LABS: IMMUNOGLOBULIN A 313 mg/dL (87-352)
[2018-08-14 08:46] VITALS: BP 104/35
[2018-08-14 12:46] VITALS: BP 113/81
[2018-08-14 18:16] VITALS: BP 107/41
[2018-08-14 21:38] VITALS: BP 93/31
[2018-08-15 01:09] VITALS: BP 104/33
[2018-08-15 04:52] LABS: BASOPHILS 0 % (0-2); EOSINOPHILS 2.3 % (0-7); HEMATOCRIT 28.9 % (36.0-48.0); IMMATURE GRANULOCYTES 0.5 % (0-5); LYMPHOCYTES 4.6 % (15-50); MCHC 34.6 g/dL (31.0-37.0); MCV 98.3 fL (80.0-100.0); MEAN PLATELET VOLUME 9.5 fL (7.4-10.4); MONOCYTES 4.4 % (2-11); NEUTROPHILS 88.2 % (40-80); RBC 2.94 10x6/uL (4.00-5.40); RDW 14.3 % (11.5-14.5); WBC 3.9 10x3/uL (4.8-10.8)
[2018-08-15 05:01] LABS: PLATELET COUNT 104 10x3/uL (130-400)
[2018-08-15 05:03] VITALS: BP 120/36
[2018-08-15 05:18] LABS: ALBUMIN 3.2 g/dL (3.4-5.0); ANION GAP 17.1 mmol/L (8-16); BILIRUBIN - TOTAL 0.83 mg/dL (0.2-1.3); CALCIUM 8.6 mg/dL (8.5-10.1); CARBON DIOXIDE 23.8 mmol/L (21.0-32.0); CREATININE - SERUM 1.8 mg/dL (0.6-1.3); MAGNESIUM - SERUM 1.3 mg/dL (1.8-2.4); PHOSPHOROUS 4.5 mg/dL (2.5-4.9); POTASSIUM - SERUM 4.9 mmol/L (3.5-5.1); PROTEIN - SERUM 7.4 g/dL (6.4-8.2)
[2018-08-15 10:04] VITALS: BP 108/38
[2018-08-15 14:49] VITALS: BP 98/37
[2018-08-15 17:36] VITALS: BP 103/86; BP 105/37
[2018-08-15 19:00] VITALS: BP 136/116
--- NOTE | 2018-08-15 19:00 | NUR ---
PT ALERT AND ORIENTED WHEN ENTERING THE ROOM. PT HAS IV TO THE LEFT UPPER SHOULDER/ARM AREA. PT CALM. REPORTS HEADACHE AND RATES PAIN 3/10. REQUESTS TYLENOL WITH HS MEDICATIONS. NO OTHER COMPLAINTS AT THIS TIME.
--- NOTE | 2018-08-16 01:20 | NUR ---
WENT INTO PATIENTS ROOM TO ADMINISTER ANOTHER ANTIBIOTIC AND [id number]. NOTICED PATIENT LEFT UPPER ARM IV SWOLLEN AND RED AROUND INSERTION SITE WHILE DOXY WAS INFUSING. STOPPED INFUSION AND D/C'D IV. CATHETER INTACT. AFTER A FEW MINUTES SMALL WELP AND BEE STING LIKE AREA AROUND INSERTION SITE. APPLIED WARM PACK AND ELEVATED ARM. RESITED IV TO RIGHT FOREARM. PRIOR TO STARTING LEFT UPPER ARM IV, RECEIVED BLOOD RETURN AND FLUSHED GOOD. PATIENT STATED NO PAIN AT TIME AND THAT SHE "TASTED SALINE" WHEN FLUSHING. NOTIFIED SNOW REMOVING SUPERVISOR WELL CHARGE NURSE OF INFILTRATION. INSTRUCTED PATIENT TO CALL IF PAIN WORSENS. PT VERBALIZED UNDERSTANDING.
[2018-08-16 03:00] VITALS: BP 127/48
--- NOTE | 2018-08-16 04:02 | NUR ---
ASSESSED, PT IS AWAKE TAKING A BEATHING TREATMENT ORDERED, RESPIRATIONS ARE UNLABORED AND NO DISTRESS IS NOTED.
--- NOTE | 2018-08-16 07:56 | NUR ---
AWAKE AND ALERT. ORIENTED X3. NO C/O AT THIS TIME. LUNGS HAVE INSPIRATORY WHEEZES. DRY COUGH NOTED. SKIN IS INTACT WITHOUT REDNESS. SL TO RIGHT FOREARM IS PATENT WITHOUT REDNESS AT INSERTION SITE. DENIES NEEDS.
--- NOTE | 2018-08-16 10:00 | NUR ---
RESTING QUIETLY IN BED. DENIES NEEDS.
[2018-08-16 10:58] VITALS: BP 115/36
--- NOTE | 2018-08-16 12:30 | NUR ---
LUNCH SERVED IN ROOM. ATE WELL. DENIES NEEDS.
[2018-08-16 14:11] LABS: IMMUNOGLOBULIN E 1304 IU/mL (0-100)
[2018-08-16 14:18] VITALS: BP 118/41
[2018-08-16 17:57] VITALS: BP 95/34
--- NOTE | 2018-08-16 18:48 | NUR ---
ATE ONLY A FEW BITES OF SUPPER. STATED SHE COULDN'T EAT BECAUSE OF COUGH. TO SOON FOR PRN COUGH SYRUP. FIXED A WARM CUP OF TEA TO SEE IF IT WOULD HELP HER.
[2018-08-16 19:00] VITALS: BP 93/24
[2018-08-16 19:07] LABS: IGG SUBCLASS 1 771 mg/dL (248-810); IGG SUBCLASS 2 224 mg/dL (130-555); IGG SUBCLASS 3 81 mg/dL (15-102); IGG SUBCLASS 4 20 mg/dL (2-96); IMMUNOGLOBULIN G 988 mg/dL (700-1600)
--- NOTE | 2018-08-16 20:00 | NUR ---
ALERT RESTING IN BED RESP UNLABORED, DENIES PAIN REQUESTING WATER INSTRUCTED THAT WOULD BRING SOME WATER BUT WAS ON FLUID RESTRICTIONS DUE TO SODIUM LEVEL LOW, VOICED UNDERSTANDING CALL LIGHT IN REACH
--- NOTE | 2018-08-16 22:00 | NUR ---
UNABLE TO FLUSH CURRENT IV, RESTARTED X 1 ATTEMPT RIGHT FOREAM 22G ANTIABIOTICS STARTED ORDERED TOLERATED WELL
[2018-08-17] VITALS: BP 87/25
[2018-08-17 03:00] VITALS: BP 95/38
[2018-08-17 06:48] LABS: BASOPHILS 0 % (0-2); EOSINOPHILS 0.2 % (0-7); HEMATOCRIT 28.3 % (36.0-48.0); HEMOGLOBIN 9.8 g/dL (12-16); IMMATURE GRANULOCYTES 0.2 % (0-5); LYMPHOCYTES 2.9 % (15-50); MCH 34.3 pg (26.0-34.0); MCHC 34.6 g/dL (31.0-37.0); MEAN PLATELET VOLUME 10.2 fL (7.4-10.4); MONOCYTES 4.6 % (2-11); NEUTROPHILS 92.1 % (40-80); PLATELET COUNT 117 10x3/uL (130-400); RBC 2.86 10x6/uL (4.00-5.40); RDW 14.1 % (11.5-14.5); WBC 4.5 10x3/uL (4.8-10.8)
[2018-08-17 06:55] LABS: ANION GAP 18.6 mmol/L (8-16); CALCIUM 8.7 mg/dL (8.5-10.1); CARBON DIOXIDE 20.5 mmol/L (21.0-32.0); CREATININE - SERUM 1.8 mg/dL (0.6-1.3); POTASSIUM - SERUM 4.1 mmol/L (3.5-5.1)
[2018-08-17 09:27] VITALS: BP 113/40
--- NOTE | 2018-08-17 10:53 | NUR ---
ALERT AND ORIENTED WITH EXPIRATORY WHEEZES X4 ANTERIOR WITH NONPRODUCTIVE COUGH AT THIS TIME. CAP REFILL<3 SEC. INNSTRUCTED ON FLUID RESTRICTION ABND VERBALIZED UNDERSTANDING. DENIES ANY PAIN OR DISCOMFORT AND ENCOURAGED TO USE CALL LIGHT FOR ASSSIT.
[2018-08-17 13:20] VITALS: BP 125/54
[2018-08-17 17:02] VITALS: BP 136/51
[2018-08-17 19:00] VITALS: BP 106/42
--- NOTE | 2018-08-17 20:00 | NUR ---
RESTING IN BED NO APPARENT DISTRESS RESP UNLABORED O2 IN USE CALL LIGHT IN REACH
[2018-08-18] VITALS: BP 100/41
[2018-08-18 03:00] VITALS: BP 110/56
[2018-08-18 05:15] LABS: BASOPHILS 0 % (0-2); EOSINOPHILS 0 % (0-7); HEMATOCRIT 27.1 % (36.0-48.0); HEMOGLOBIN 9.5 g/dL (12-16); IMMATURE GRANULOCYTES 0.2 % (0-5); LYMPHOCYTES 4.1 % (15-50); MCH 34.3 pg (26.0-34.0); MCHC 35.1 g/dL (31.0-37.0); MCV 97.8 fL (80.0-100.0); MEAN PLATELET VOLUME 9.8 fL (7.4-10.4); MONOCYTES 8.6 % (2-11); NEUTROPHILS 87.1 % (40-80); PLATELET COUNT 113 10x3/uL (130-400); RBC 2.77 10x6/uL (4.00-5.40); RDW 14.1 % (11.5-14.5); WBC 4.6 10x3/uL (4.8-10.8)
[2018-08-18 05:33] LABS: ANION GAP 14.7 mmol/L (8-16); CALCIUM 9.2 mg/dL (8.5-10.1); CARBON DIOXIDE 24.6 mmol/L (21.0-32.0); CREATININE - SERUM 1.4 mg/dL (0.6-1.3); POTASSIUM - SERUM 4.3 mmol/L (3.5-5.1)
[2018-08-18 08:21] VITALS: BP 108/47
--- NOTE | 2018-08-18 08:25 | NUR ---
PT IS SITTING UP TO SIDE OF BED. BREAKFAST TRAY WITHIN REACH. PT WITH DRY SOUNDING COUGH AND PT DENIES A PRODUCTIVE COUGH. O2 VIA NC @ 2L. EXP WHEEZES NOTED IN LEFT LOWER LOBE. PT DENIES PRESENCE OF PAIN AND N/V AT THIS TIME. BED IS IN THE LOWEST POSITION. CALL LIGHT AND BEDSIDE TABLE ARE WITHIN REACH. WILL CONT TO MONITOR.
--- NOTE | 2018-08-18 09:23 | NUR ---
RIGHT FOREARM PIV WITH BURNING AND HARD KNOT NOTED. PIV REMOVED WITH CATHETER TIP INTACT. DRESSING APPLIED. VASCULAR ACCESS NURSE NOTIFIED OF NEED FOR ASSESSMENT FOR IV ACCESS.
[2018-08-18 12:20] VITALS: BP 102/48
[2018-08-18 16:00] VITALS: BP 111/42
--- NOTE | 2018-08-18 19:35 | NUR ---
THE PATIENT WAS LYING IN BED AND WATCHING TELEVISION WHEN STAFF ENTERED HER ROOM. BED IN THE LOW POSITION WITH SIDERAILS X2 AND CALL LIGHT WITHIN REACH. PATIENT DEMONSTRATES APPROPRIATE USE OF A CALL LIGHT. THE PATIENT APPEARS COMFORTABLE WITH NO QUESTIONS OR CONCERNS AT THIS TIME.
[2018-08-18 20:00] VITALS: BP 108/37
[2018-08-19] VITALS: BP 130/70
--- NOTE | 2018-08-19 02:57 | NUR ---
THE PATIENT IS WATCHING TELEVISION. SHE HAS NO QUESTIONS OR CONCERNS AT THIS TIME.
[2018-08-19 05:19] VITALS: BP 122/66
[2018-08-19 06:09] LABS: BASOPHILS 0 % (0-2); EOSINOPHILS 0 % (0-7); HEMATOCRIT 28.6 % (36.0-48.0); HEMOGLOBIN 9.8 g/dL (12-16); IMMATURE GRANULOCYTES 0.2 % (0-5); LYMPHOCYTES 3.5 % (15-50); MCH 33.7 pg (26.0-34.0); MCHC 34.3 g/dL (31.0-37.0); MCV 98.3 fL (80.0-100.0); MEAN PLATELET VOLUME 9.9 fL (7.4-10.4); MONOCYTES 4.7 % (2-11); NEUTROPHILS 91.6 % (40-80); PLATELET COUNT 124 10x3/uL (130-400); RBC 2.91 10x6/uL (4.00-5.40); RDW 13.9 % (11.5-14.5)
[2018-08-19 06:30] LABS: ANION GAP 14.3 mmol/L (8-16); CALCIUM 9.4 mg/dL (8.5-10.1); CARBON DIOXIDE 25.8 mmol/L (21.0-32.0); CREATININE - SERUM 1.5 mg/dL (0.6-1.3); POTASSIUM - SERUM 4.1 mmol/L (3.5-5.1)
--- NOTE | 2018-08-19 08:04 | NUR ---
PT SITTING UP IN BED RESTING. DENIES PAIN AT THIS TIME. A/O X 4. UP AB JOSIE. R AC IV SL. 2L O2 VIA NC. PT HAS BEEN NPO SINCE MIDNIGHT FOR BRONCH TODAY. SCDS ON AND WORKING PROPERLY. CONSENTS SIGNED AND IN CHART. NO FURTHER CONCERNS AT THIS TIME. BED LOWERED AND LOCKED. CL IN REACH. WILL CPOC.
[2018-08-19 08:27] VITALS: BP 119/43
--- NOTE | 2018-08-19 10:42 | NUR ---
PT TO BRONCH VIA BED.
--- NOTE | 2018-08-19 11:32 | NUR ---
PT BACK TO FLOOR VIA BED. PT SLEEPY. FAMILY AT BEDSIDE. BP LOW, 103/43, NS @ 50 CC/HOUR TO R FOREARM.
[2018-08-19 12:04] VITALS: BP 101/39
--- NOTE | 2018-08-19 13:19 | NUR ---
NUTRITION F//U PT BACK TO ROOM FROM PROCEDURE. WILL PROVIDE DIET WHEN RESUMED, MONITOR PO INTAKE. RD FOLLOWING
[2018-08-19 15:07] VITALS: BP 119/36
--- NOTE | 2018-08-19 15:41 | NUR ---
PT UP WALKING AROUND ROOM. STATED SHE NEEDED TO GET UP AND GO TO THE BATHROOM. TOOK MEDICATION WITHOUT DIFFICULTY. IV TO R FA SL. VITALS STABLE. DENIES PAIN AT THIS TIME. STATES THAT SHE FEELS OKAY SINCE BRONCH THIS AM. NO FURTHER CONCERNS AT THIS TIME. BED LOWERED AND LOCKED. CL IN REACH. WILL CPOC.
--- NOTE | 2018-08-19 16:34 | NUR ---
PATIENT RESTING WITH NO NEEDS VOICED, CL IN REACH
[2018-08-19 20:00] VITALS: BP 122/38
--- NOTE | 2018-08-19 20:10 | NUR ---
PT RESTING IN BED. ALERT AND ORIENTED. NO SIGNS OF DISTRESS. BREATHING EVEN AND UNLABORED. PT STATES NO PROBLEMS A THIS TIME. IV SITE RT AC DRESSING CLEAN DRY AND INTACT. NO SIGNS OF INFECTION. SKIN CLEAN DRY AND INTACT. 2LO2 NASAL CANNULA. BOWEL SOUNDS ACTIVE. NO LOWER LEG SWELLING PRESENT. WILL CONTINUE PLAN OF CARE. CALL LIGHT IN REACH. BED LOWERED AND LOCKED. BE DRAILS UP X2.
--- NOTE | 2018-08-19 23:02 | NUR ---
RESTING IN BED NO S/S OF DIDTRESS, NO NEEDS NOTED, CALL LIGHT IN REACH. RESPRATIONS OSVALDO AND UNLABORED, CHECKED OFTEN FOR NEEDS AND SAFETY.
[2018-08-20] VITALS (7 sets, daily range): BP systolic 98–114; BP diastolic 34–44; Ht 149.9 cm; Wt 81.6 kg
[2018-08-20 05:55] LABS: BASOPHILS 0 % (0-2); EOSINOPHILS 0 % (0-7); HEMATOCRIT 28.9 % (36.0-48.0); HEMOGLOBIN 9.7 g/dL (12-16); IMMATURE GRANULOCYTES 0.4 % (0-5); LYMPHOCYTES 4.1 % (15-50); MCH 33.9 pg (26.0-34.0); MCHC 33.6 g/dL (31.0-37.0); MEAN PLATELET VOLUME 10.4 fL (7.4-10.4); MONOCYTES 2.4 % (2-11); NEUTROPHILS 93.1 % (40-80); PLATELET COUNT 106 10x3/uL (130-400); RBC 2.86 10x6/uL (4.00-5.40); RDW 14.3 % (11.5-14.5); WBC 5.3 10x3/uL (4.8-10.8)
[2018-08-20 06:21] LABS: ANION GAP 16.8 mmol/L (8-16); CALCIUM 9.4 mg/dL (8.5-10.1); CARBON DIOXIDE 21.9 mmol/L (21.0-32.0); CREATININE - SERUM 1.6 mg/dL (0.6-1.3); POTASSIUM - SERUM 3.7 mmol/L (3.5-5.1)
--- NOTE | 2018-08-20 06:34 | NUR ---
EYES CLOSED RESPIRATIONS WITH EASE AND UNLABORED.
--- NOTE | 2018-08-20 07:25 | NUR ---
PT ALERT AND ORIENTED. PT UP AD JOSIE. FLUID RESTRICTION 800ML. PT ON 2L O2, NC. IV TO RIGHT FOREARM, SL, SITE PATENT WITHOUT REDNESS OR SWELLING. PT HAS SCDS PRESENT AND ON. PT DENIES ANYTHING FURTHER AT THIS TIME. CALL LIGHT IN REACH. WILL CONTINUE TO MONITOR.
--- NOTE | 2018-08-20 11:48 | NUR ---
WINDOW TRIMMER NOTE- RFA SALINE LOCKED. PATENT AND DRESSING INTACT. LOWER LOBE WHEEZES. O2 ON A 2 L NO FURTHER NEEDS AT THIS TIME
[2018-08-20 15:22] LABS: FUNGUS STAIN Final report (())
[2018-08-20 16:11] LABS: ACID FAST SMEAR Negative (()); AFB SPECIMEN PROCESSING Concentration (())
--- NOTE | 2018-08-20 19:22 | NUR ---
PT RESTING IN BED. NO C/O PAIN. NO S/S OF ACUTE DISTRESS NOTED. CALL LIGHT IN REACH. PT DENIES ANYTHING FURTHER. WILL CONTINUE TO MONITOR.
--- NOTE | 2018-08-20 20:20 | NUR ---
PT RESTING IN BED. ALERT AND ORIENTED. NO SIGNS OF DISTRESS. BREATHING EVEN AND UNLABORED. SKIN CLEAN DRY AND INTACT. IV SITE LT HAND DRESSING CLEAN DRY AND INTACT. NO SIGNS OF INFECTION. 2LO2 NASAL CANNULA. BOWEL SOUNDS ACTIVE. NO LOWER LEG SWELLING PRESENT. WILL CONTINUE PLAN OF CARE. CALL LIGHT IN REACH. BED LOWERED AND LOCKED. BED RAILS UP X2.
[2018-08-21] VITALS: BP 101/37
--- NOTE | 2018-08-21 01:45 | NUR ---
PT LYING IN BED RESTING, NO SIGNS OF DISTRESS. DENIES NEEDS. AGREE W/ RADIO ELECTRICIAN ASSESSMENT. CL IN REACH
[2018-08-21 04:00] VITALS: BP 114/40
[2018-08-21 05:49] LABS: BASOPHILS 0 % (0-2); EOSINOPHILS 0 % (0-7); HEMOGLOBIN 9.6 g/dL (12-16); IMMATURE GRANULOCYTES 0.3 % (0-5); LYMPHOCYTES 3.3 % (15-50); MCH 33.9 pg (26.0-34.0); MCHC 34.3 g/dL (31.0-37.0); MONOCYTES 6.4 % (2-11); PLATELET COUNT 113 10x3/uL (130-400); RBC 2.83 10x6/uL (4.00-5.40); RDW 14.1 % (11.5-14.5)
[2018-08-21 06:09] LABS: ANION GAP 15.1 mmol/L (8-16); CALCIUM 9.5 mg/dL (8.5-10.1); CARBON DIOXIDE 24.1 mmol/L (21.0-32.0); CREATININE - SERUM 1.5 mg/dL (0.6-1.3); POTASSIUM - SERUM 4.2 mmol/L (3.5-5.1)
[2018-08-21 06:14] LABS: MCV 98.9 fL (80.0-100.0); WBC 6.7 10x3/uL (4.8-10.8)
--- NOTE | 2018-08-21 07:54 | NUR ---
AWAKE AND ALERT. ORIENTED X3. NO C/O AT THIS TIME. LUNGS ARE CLEAR BILATERALLY BUT DIMINISHED THROUGHOUT LUNG MAKI. REPORTS SOB WITH EXERTION BUT THIS IS NOT NEW. SHE REPORTS THIS HAPPENS AT HOME WELL. SL TO LEFT HAND IS PATENT WITHOUT REDNESS AT INSERTION SITE. DENIES NEEDS.
[2018-08-21 08:45] VITALS: BP 152/55
--- NOTE | 2018-08-21 10:00 | NUR ---
ATE ALMOST ALL OF BREAKFAST. DENIES NEEDS.
[2018-08-21 12:43] VITALS: BP 106/43
[2018-08-21 17:25] VITALS: BP 117/35
--- NOTE | 2018-08-21 18:44 | NUR ---
ATE ABOUT 75% OF SUPPER. NO C/O AT THIS TIME. NO CHANGES NOTED.
--- NOTE | 2018-08-21 19:40 | NUR ---
PT SITTING UP IN BED, NO SIGNS OF DISTRESS. ALERT AND ORIENTED. IV LEFT HAND SL, NO REDNESS OR SWELLING AT INSERTION SITE. PT DENIES NEEDS AT THIS TIME. CL IN REACH, WILL CONTINUE TO MONITOR
[2018-08-21 20:00] VITALS: BP 121/44
[2018-08-22] VITALS: BP 120/40
[2018-08-22 04:00] VITALS: BP 144/45
[2018-08-22 08:49] VITALS: BP 125/50
[2018-08-22 12:35] VITALS: BP 127/44
[2018-08-22 16:39] VITALS: BP 121/52
[2018-08-22 20:00] VITALS: BP 115/35
--- NOTE | 2018-08-22 20:00 | NUR ---
INITIAL ASSESSMENT COMPLETED - PT A/O X4. VSS. RR EVEN AND UL ON 3L O2 VIA NC. PT HAS NO IV ACCESS AT THIS TIME. DENIES ANY PAIN OR NEEDS AT THIS TIME. CL IN REACH, SR UP X2, BED IN LOWEST POSITION. WCTM AND FOLLOW POC.
[2018-08-23] VITALS: BP 135/40
--- NOTE | 2018-08-23 | NUR ---
22G PIV INSERTED INTO R FA X2 STICKS VIA DIMPLE DELATORRE. PATENT, C/D/I, NO C/O PAIN OR DISCOMFORT AT SITE OF IV. PT TOLERATED WELL. NO OTHER NEEDS NOTED AT THIS TIME. CL IN REACH, SR UP X2, BED IN LOWEST POSITION.
[2018-08-23 04:00] VITALS: BP 139/55
--- NOTE | 2018-08-23 04:34 | NUR ---
RESUMING PT CARE - PT RESTING IN BED WITH EYES CLOSED. RR EVEN AND ON 3L O2 VIA NC. NO S/S OF DISTRESS. NO PAIN OR DISCOMFORT NOTED AT THIS TIME. CL IN REACH, SR UP X2, BED IN LOWEST POSITION.
[2018-08-23 06:50] LABS: BASOPHILS 0.2 % (0-2); EOSINOPHILS 0 % (0-7); HEMATOCRIT 27.7 % (36.0-48.0); HEMOGLOBIN 9.5 g/dL (12-16); IMMATURE GRANULOCYTES 1.2 % (0-5); LYMPHOCYTES 2.7 % (15-50); MCH 33.9 pg (26.0-34.0); MCHC 34.3 g/dL (31.0-37.0); MCV 98.9 fL (80.0-100.0); MEAN PLATELET VOLUME 10.2 fL (7.4-10.4); MONOCYTES 5.3 % (2-11); NEUTROPHILS 90.6 % (40-80); PLATELET COUNT 109 10x3/uL (130-400); RDW 13.9 % (11.5-14.5); WBC 6.7 10x3/uL (4.8-10.8)
[2018-08-23 06:53] LABS: CALCIUM 9.5 mg/dL (8.5-10.1); CARBON DIOXIDE 25.6 mmol/L (21.0-32.0); CREATININE - SERUM 1.2 mg/dL (0.6-1.3); POTASSIUM - SERUM 4.6 mmol/L (3.5-5.1)
[2018-08-23 09:00] VITALS: BP 133/48
[2018-08-23] MEDS ORDERED: IPRAT-ALBUT 0.5-3 ML UPD (09:49)
[2018-08-23] MEDS ORDERED: ALBUTEROL SULF8.5 GM INH (09:52)
[2018-08-23] MEDS ORDERED: MEDROL DOSE PACK4 MG PO (09:53)
[2018-08-23] MEDS ORDERED: DIFLUCAN100 MG PO (09:54)
--- NOTE | 2018-08-23 11:04 | MORECARE ---
CASE MANAGEMENT DISCHARGE SUMMARY PATIENT: CELESTINE VANEGAS UNIT: [id number] ADM DATE: 08/06/18 AGE: 68 : 51 SEX: F ROOM/BED: D.2237 AUTHOR: REGINA REDDY PHYSICIAN: REFERRING PHYSICIAN: RUSTY SIMS MD DATE OF SERVICE: 08/23/18 Discharge Plan Patient Name: CELESTINE VANEGAS Facility: [facility]:[place] : 1950 Planned Disposition: Home Hlth Svc w Plan Readm Anticipated Discharge Date: 08/12/18 Discharge Date: Expected LOS: 6 Initial Reviewer: [email or web address] Initial Review Date: 08/12/2018 Generated: 08/23/18 12:04 pm Comments DCP- Discharge Planning Updated by [id number]: Viri Escalona on 08/23/18 10:[address] Patient Name: CELESTINE VANEGAS Encounter No: [id number] : 1950 Primary Insurance: MEDICARE A & B Anticipated DC Date: 08-12-2018 Planned Disposition: Home Hlth Svc w Plan Readm External Planned Provider: : DCP follow-up note: Patient and family in agreement with discharge plan. No changes to plan. GÓMEZ AT [facility] CALLED AND STATES PATIENT IS CURRENT WITH THEM AND THEY WILL CALL HER SATURDAY. [facility] PHONE NUMBER IS [phone]. Case management will follow and assist as needed. Viri Escalona DCP- Discharge Planning Updated by [email or web address]: Mony Jean Baptiste on 08/12/18 8:[address] Patient Name: CELESTINE VANEGAS Admission Status: ER Accout number: [id number] Admission Date: 08-06-2018 : 1950 Admission Diagnosis:SHORTNESS OF BREATH Attending: RUSTY SIMS Current LOS: 6 Anticipated DC Date: 08-12-2018 Planned Disposition: Home Hlth Svc w Plan Readm Primary Insurance: MEDICARE A & B Discharge Planning Comments: CM met with patient to discuss discharge planning, she is alone in the room. States she lives alone in a single story home. She uses her cane for ambulation, otherwise is independent with ADL's. States her daughter, Ivana, lives next door and will take her home on discharge. I discussed the availability of additional DME, rehab, SNF and home health. She states her plan is to return home with [facility], GLADYS for [facility] signed. I called Tran with [facility] and they will accept her back on discharge. Declines need for additional DME and declines rehab services. CM will continue to follow and assist with discharge planning/needs. Floor Plan Adjuster: Mony Jean Baptiste DCPIA - Discharge Planning Initial Assessment Updated by [email or web address]: Mony Escobarfelix on 08/12/18 9:34 am * Is the patient Alert and Oriented? Yes * How many steps to enter\exit or inside your home? 6/0 * PCP Dr. Sims * Pharmacy [facility] 7N * Preadmission Environment Home Alone * ADLs Partial Dependent * Partial ADLs (Assistance needed) Ambulation * Equipment Cane Nebulizer Other Oxygen Walker * Other Equipment Portable oxygen * List name and contact numbers for known caregivers / representatives who currently or will assist patient after discharge: Ivana Myles [facility] - [phone] * Verbal permission to speak to the caregivers and representatives has been obtained from the patient. Yes * Community resources currently utilized Home Health * Please name any agencies selected above. [facility] D[facility] choice is [facility] * Additional services required to return to the preadmission environment? No * Can the patient safely return to the preadmission environment? Yes * Has this patient been hospitalized within the prior 30 days at any hospital? No Last DP export: 08/12/18 8:39 a Patient Name: CELESTINE VANEGAS Page [id number] at 1104 All edits/amendments must be made on the electronic document DICTATION DATE: 08/23/181102 CROWN AND BRIDGE TECHNICIAN: NADIR 08/23/181102 RPT#: [id number] DC DATE: STATUS: ADM IN [facility] [address] [place] [address] END OF REPORT
--- NOTE | 2018-08-23 11:10 | MORECARE ---
CASE MANAGEMENT DISCHARGE SUMMARY PATIENT: CELESTINE VANEGAS UNIT: [id number] ADM DATE: 08/06/18 AGE: 68 : 51 SEX: F ROOM/BED: D.2237 AUTHOR: REGINA REDDY PHYSICIAN: REFERRING PHYSICIAN: RUSTY SIMS MD DATE OF SERVICE: 08/23/18 Discharge Plan Patient Name: CELESTINE VANEGAS Facility: [facility]:[place] : 1950 Planned Disposition: Home Hlth Svc w Plan Readm Anticipated Discharge Date: 08/12/18 Discharge Date: Expected LOS: 6 Initial Reviewer: [email or web address] Initial Review Date: 08/12/2018 Generated: 08/23/18 12:10 pm Comments DCP- Discharge Planning Updated by [id number]: Viri Escalona on 08/23/18 10:[address] Patient Name: CELESTINE VANEGAS Encounter No: [id number] : 1950 Primary Insurance: MEDICARE A & B Anticipated DC Date: 08-12-2018 Planned Disposition: Home Hlth Svc w Plan Readm External Planned Provider: : DCP follow-up note: Patient and family in agreement with discharge plan. No changes to plan. GÓMEZ AT [facility] CALLED AND STATES PATIENT IS CURRENT WITH THEM AND THEY WILL CALL HER SATURDAY. [facility] PHONE NUMBER IS [phone]. Case management will follow and assist as needed. Viri Escalona DCP- Discharge Planning Updated by [email or web address]: Mony Jean Baptiste on 08/12/18 8:[address] Patient Name: CELESTINE VANEGAS Admission Status: ER Accout number: [id number] Admission Date: 08-06-2018 : 1950 Admission Diagnosis:SHORTNESS OF BREATH Attending: RUSTY SIMS Current LOS: 6 Anticipated DC Date: 08-12-2018 Planned Disposition: Home Hlth Svc w Plan Readm Primary Insurance: MEDICARE A & B Discharge Planning Comments: CM met with patient to discuss discharge planning, she is alone in the room. States she lives alone in a single story home. She uses her cane for ambulation, otherwise is independent with ADL's. States her daughter, Ivana, lives next door and will take her home on discharge. I discussed the availability of additional DME, rehab, SNF and home health. She states her plan is to return home with [facility], GLADYS for [facility] signed. I called Tran with [facility] and they will accept her back on discharge. Declines need for additional DME and declines rehab services. CM will continue to follow and assist with discharge planning/needs. Fan Balancer: Mony Ita DCPIA - Discharge Planning Initial Assessment Updated by [id number]: Mony Jean Baptiste on 08/12/18 9:34 am * Is the patient Alert and Oriented? Yes * How many steps to enter\exit or inside your home? 6/0 * PCP Dr. Sims * Pharmacy [facility] 7N * Preadmission Environment Home Alone * ADLs Partial Dependent * Partial ADLs (Assistance needed) Ambulation * Equipment Cane Nebulizer Other Oxygen Walker * Other Equipment Portable oxygen * List name and contact numbers for known caregivers / representatives who currently or will assist patient after discharge: Ivana Myles [facility] - [phone] * Verbal permission to speak to the caregivers and representatives has been obtained from the patient. Yes * Community resources currently utilized Home Health * Please name any agencies selected above. [facility] DME choice is [facility] * Additional services required to return to the preadmission environment? No * Can the patient safely return to the preadmission environment? Yes * Has this patient been hospitalized within the prior 30 days at any hospital? No External Providers External Provider: [facility] Contact Date: Service Request Date: Service Type: Resolution: Reviewer: Comments: Last DP export: 08/23/18 10:04 a Patient Name: CELESTINE VANEGAS Page 21902 at 1110 All edits/amendments must be made on the electronic document DICTATION DATE: 08/23/18 1110 TIMBER WATCHMAN: NADIR 08/23/18 1110 RPT#: [id number] DC DATE: STATUS: ADM IN [facility] [address] [place] [address] END OF REPORT
--- NOTE | 2018-08-23 13:00 | NUR ---
ALERT AND ORIENTED X3 ANTICIPATED DISCHARGE WITH S/L REMOVED. RESP EVEN AND UNLABORED ON 3LN/C DIMINISHED X4 ANTERIOR BUT CTA. STATES HAS OXYGEN AT HOME WITH ANTICIPATED HOME HEALTH SERVICES FROM BEFORE. AWAITING FAMILY ARRIVAL FOR DISCHARGE AND VERBALIZED UNDERSTANDING OF DISCHARGE INSTRUCTIONS.
--- NOTE | 2018-08-23 13:45 | NUR ---
DISCHARGED HOME UNDER THE CARE OF FAMILY VIA POV. STABLE AT TIME OF DEPARTURE.
[2018-08-26 12:14] LABS: FUNGUS CULTURE RESULT 1 Candida albicans (()); FUNGUS MYCOLOGY CULTURE Preliminary report (()); FUNGUS STAIN RESULT 1 Yeast observed (())
--- NOTE | 2018-08-27 12:37 | MORECARE ---
CASE MANAGEMENT DISCHARGE SUMMARY PATIENT: CELESTINE VANEGAS UNIT: [id number] ADM DATE: 08/06/18 AGE: 68 : 51 SEX: F ROOM/BED: D.2237 AUTHOR: REGINA REDDY PHYSICIAN: REFERRING PHYSICIAN: RUSTY SIMS MD DATE OF SERVICE: 08/27/18 Discharge Plan Patient Name: CELESTINE VANEGAS Facility: [facility]:[place] : 1950 Planned Disposition: Home Hlth Svc w Plan Readm Anticipated Discharge Date: 08/12/18 Discharge Date: 08/23/2018 Expected LOS: 6 Initial Reviewer: [id number] Initial Review Date: 08/12/2018 Generated: 08/27/18 1:37 pm Comments DCP- Discharge Planning Updated by [email or web address]: Viri Escalona on 08/23/18 10:[address] Patient Name: CELESTINE VANEGAS Encounter No: [id number] : 1950 Primary Insurance: MEDICARE A & B Anticipated DC Date: 08-12-2018 Planned Disposition: Home Hlth Svc w Plan Readm External Planned Provider: : DCP follow-up note: Patient and family in agreement with discharge plan. No changes to plan. GÓMEZ AT [facility] CALLED AND STATES PATIENT IS CURRENT WITH THEM AND THEY WILL CALL HER SATURDAY. [facility] PHONE NUMBER IS [phone]. Case management will follow and assist as needed. Viri Escalona DCP- Discharge Planning Updated by [id number]: Mony Jean Baptiste on 08/12/18 8:[address] Patient Name: CELESTINE VANEGAS Admission Status: ER Accout number: [id number] Admission Date: 08-06-2018 : 1950 Admission Diagnosis:SHORTNESS OF BREATH Attending: RUSTY SIMS Current LOS: 6 Anticipated DC Date: 08-12-2018 Planned Disposition: Home Hlth Svc w Plan Readm Primary Insurance: MEDICARE A & B Discharge Planning Comments: CM met with patient to discuss discharge planning, she is alone in the room. States she lives alone in a single story home. She uses her cane for ambulation, otherwise is independent with ADL's. States her daughter, Ivana, lives next door and will take her home on discharge. I discussed the availability of additional DME, rehab, SNF and home health. She states her plan is to return home with [facility], [facility] for [facility] signed. I called Tran with [facility] and they will accept her back on discharge. Declines need for additional DME and declines rehab services. CM will continue to follow and assist with discharge planning/needs. Developmental Specialist: Mony Jean Baptiste DCPIA - Discharge Planning Initial Assessment Updated by [email or web address]: Mony Ita on 08/12/18 9:34 am * Is the patient Alert and Oriented? Yes * How many steps to enter\exit or inside your home? 6/0 * PCP Dr. Sims * Pharmacy [facility] * Preadmission Environment Home Alone * ADLs Partial Dependent * Partial ADLs (Assistance needed) Ambulation * Equipment Cane Nebulizer Other Oxygen Walker * Other Equipment Portable oxygen * List name and contact numbers for known caregivers / representatives who currently or will assist patient after discharge: Ivana Bueno [facility] - [phone] * Verbal permission to speak to the caregivers and representatives has been obtained from the patient. Yes * Community resources currently utilized Home Health * Please name any agencies selected above. [facility] DME choice is [facility] * Additional services required to return to the preadmission environment? No * Can the patient safely return to the preadmission environment? Yes * Has this patient been hospitalized within the prior 30 days at any hospital? No Last DP export: 08/23/18 10:10 a Patient Name: CELESTINE VANEGAS Page [id number] at 1237 All edits/amendments must be made on the electronic document DICTATION DATE: 08/27/18 1237 SAFE DEPOSIT BOX RENTAL CLERK: NADIR 08/27/18 1237 RPT#: [id number] DC DATE:08/23/18 STATUS: DIS IN [facility] [address] [place] [address] END OF REPORT
== END 2018-08-23 14:41 | disposition home health service (06) | DRG 193 ==
LOC: D.ER 12:54 → D.MS 15:48 → D.EDHOLD 15:48 → D.MS 16:10 → D.SDCHOLD 08-08 16:38 → D.MS 08-08 16:41
PROVIDERS: Emergency Medicine; Family Medicine; Internal Medicine Pulmonary Disease; ADMIT Family Medicine; ATTEND Family Medicine
PROC: 0BC18ZZ Extirpation of Matter from Trachea, Via Natural or Artificial Opening Endoscopic (ICD-10-PCS; 2018-08-19)
PROC: 0B9J8ZX Drainage of Left Lower Lung Lobe, Via Natural or Artificial Opening Endoscopic, Diagnostic (ICD-10-PCS; 2018-08-19)
PROC: 0BC28ZZ Extirpation of Matter from Carina, Via Natural or Artificial Opening Endoscopic (ICD-10-PCS; principal; 2018-08-19 10:00)
DX: J18.9 Pneumonia, unspecified organism (principal); I50.23 Acute on chronic systolic (congestive) heart failure; B37.1 Pulmonary candidiasis; J44.0 Chronic obstructive pulmonary disease with (acute) lower respiratory infection; T17.590A Other foreign object in bronchus causing asphyxiation, initial encounter; E87.1 Hypo-osmolality and hyponatremia; E11.9 Type 2 diabetes mellitus without complications; F32.9 Major depressive disorder, single episode, unspecified; E09.42 Drug or chemical induced diabetes mellitus with neurological complications with diabetic polyneuropathy; I10 Essential (primary) hypertension; I11.0 Hypertensive heart disease with heart failure; E78.5 Hyperlipidemia, unspecified; I25.10 Atherosclerotic heart disease of native coronary artery without angina pectoris; D69.6 Thrombocytopenia, unspecified; E87.6 Hypokalemia; E87.5 Hyperkalemia

== ENCOUNTER → 2019-12-01 23:28 | Outpatient (CLI) | payer MEDICARE, BC ==
[~2019-12-01 23:28] MED LIST changes: +ALBUTEROL SULF8.5 GM INH; +ATARAX 25 MG TA25 MG PO; +DIFLUCAN100 MG PO; +IPRAT-ALBUT 0.5-3 ML UPD; +LEVOTHYROXINE50 MCG PO; +MEDROL DOSE PACK4 MG PO
== END | disposition home or self-care (01) ==
LOC: D.MAMMO 09-29 09:15
PROVIDERS: ATTEND Family Medicine
DX: Z12.31 Encounter for screening mammogram for malignant neoplasm of breast (principal)

== ENCOUNTER → 2019-12-14 19:00 | Outpatient (CLI) | payer MEDICARE, BC | END | disposition home or self-care (01) | LOC: D.MAMMO 10:30 | PROVIDERS: ATTEND Family Medicine | DX: R92.8 Other abnormal and inconclusive findings on diagnostic imaging of breast (principal) ==

== ENCOUNTER → 2019-12-16 13:23 | Outpatient (CLI) | payer MEDICARE, BC | END | disposition home or self-care (01) | LOC: D.LABREF 13:23 | PROVIDERS: ATTEND Internal Medicine Pulmonary Disease | DX: Z11.59 Encounter for screening for other viral diseases (principal) ==

== ENCOUNTER → 2019-12-17 09:33 | Outpatient (CLI) | payer MEDICARE, BC | END | disposition home or self-care (01) | LOC: D.RT 09:30 | PROVIDERS: ATTEND Internal Medicine Pulmonary Disease | DX: J44.9 Chronic obstructive pulmonary disease, unspecified (principal); R91.1 Solitary pulmonary nodule ==

== ENCOUNTER → 2020-03-16 09:57 | Outpatient (CLI) | payer MEDICARE, BC | END | disposition home or self-care (01) | LOC: D.HCCECHO 09:57 | PROVIDERS: ATTEND Internal Medicine Cardiovascular Disease | DX: I25.10 Atherosclerotic heart disease of native coronary artery without angina pectoris (principal) ==